=== PATIENT | male | born 1950 | race Caucasian/White ===

== ENCOUNTER → 2019-10-01 | Outpatient (CLI) | payer MEDICARE, SELFPAY ==
--- NOTE | 2019-10-01 14:09 | VDLE_ITS ---
Reason For Study: edema, pain RIGHT LEFT GSV is normal. GSV is normal. CFV is compressible, spontaneous, phasic, CFV is compressible, spontaneous, phasic, competent and demonstrates normal competent, and demonstrates normal augmentation. augmentation. FV is compressible, spontaneous, phasic, FV is compressible, spontaneous, phasic, competent and demonstrates normal competent and demonstrates normal augmentation. augmentation. POP V is compressible, spontaneous, phasic, POP V is compressible, spontaneous, phasic, competent and demonstrates normal competent and demonstrates normal augmentation. augmentation. T/P Trunk is compressible. T/P Trunk is compressible. PTV is compressible. PTV is compressible. RT PerV is compressible. LT PerV is compressible. Procedure Exam performed in department. The exam was diagnostic. A preliminary report was called and/or faxed to Milana DUTTON. Interpretation Summary Deep veins of the lower extremities are bilaterally patent and compressible segmentally. There is no evidence of deep vein thrombosis on either side. Valvular competence appears intact within the proximal deep venous systems bilaterally. The great saphenous veins appear bilaterally patent and compressible segmentally. Ordering Physician: Milana Cason Performed By: Elkin Mobley RVT
--- OUTSIDE RECORDS SUMMARY | 2020-02-07 11:55 | XMS RPT_ITS | CCD ---
:1950 External Reference #:[id number] Author Organization [facility] Care Team Providers Name Role Phone Brandy Fernández Primary Care Provider Medications Medication Name Sig Date Prescriber Location Fluocinonide fluocinonide (LIDEX) 12-31-2017 - Messi Fernández [facility] 0.05 % cream Apply 1 01-12-2020 ([id number]) application to affected area once daily as needed (hand eczema). 0 01/12/2020 Active Comment: Apply 1 application to affec parag area once daily as needed (hand eczema). Apply 1 application to affec parag area once daily. hydrOXYzine hydrOXYzine HCl (ATARAX) 08-31-2019 [facility] Provider [facility] 25 mg tablet TAKE 1 TABLET ( 10672) BY MOUTH EVERYDAY AT BEDTIME 0 08/31/2019 Active Comment: TAKE 1 TABLET BY MOUTH EVERY DAY AT BEDTIME Loratadine loratadine (CLARITIN) 10 mg tablet [facility] Pr ovider [facility] ([id number]) Take 10 mg by mouth twice daily. 0 Active Comment: Take 10 mg by mouth twice da catarino. Triamcinolone triamcinolone 06-30-2019 - [facility] Provider [facility] acetonide (KENALOG) 01-12-2020 Provider ([id number]) 0.1 % cream Apply 1 application to affected area twice daily. Use for 14 days, then stop for 7 days, then repeat as needed 0 06/30/2019 01/12/2020 Discontinued Comment: Apply 1 application to affec parag area twice daily. Use for 14 days, then stop for 7 days, then repeat as n eeded Problems Active Problems Category Problem Name Status Date Location Allergic reactions Chronic eczema Active [facility] ([id number]) Calculus of urinary tract Kidney stone Active [facility] (35220) Residual codes; Requires vaccination Active [facility] unclassified (07172) Unclassified Patient encounter status Active [facility] (97642) Past or Other Problems Category Problem Name Status Date Location Neoplasms of Myelodysplastic syndrome Completed 04-11-2012 - [facility] unspecified nature (clinical) (91942) or uncertain behavior Results Result Name Value Range Unit Interpretation Flag Date Location [facility] on 2020-01-26 [facility]) Normal 01-26-2020 [place] [facility] CLEMENCIA GARCIA ([id number]) 1950 M [facility] Time Provider Department ([id number]) 01/26/20 ELY ALFONSO During your visit today, we recorded the following informati on about you: Ely Alfonso MD 01/26/2020 3:42 PM Signed Please call patient for possible blood t ransfusion this week. Message left for patient to call back today. MD Pippa Cotter LPN, LPN 01/26/2020 4:07 PM Signed Pt. Scheduled for transfusio n 1 unit packed cells. Pt. And lab notified, orders faxed. Pt.instructed to leave his green band on. Pippa English LPN Allergies As of Date: 01/26/2020 (No Known Allergies) Date Reviewed: 01/12/2020 Reviewed by: Eugenia Browne LPN - Fully Assessed Reason for Visit: Results [95] Cmt: blood transfusion Prescriptions as of 01/26/2020 Sig: FLUOCINONIDE 0.05 % TOPICAL C* Apply 1 application to affect * HYDROXYZINE HCL 25 MG TABLET TAKE 1 TABLET BY MOUTH EVERYD* LORATADINE 10 MG TABLET Take 10 mg by mouth twice jo ann* Problem List As Of Date 01/26/2020 Noted Resolved BPH w/o urinary obs/LUTS [N40.0] 11/20/2005 01/11/2011 Urinary tract infection, site not specified [N3*11/20/2005 0 01/11/2011 Unspecified essential hypertension [I10] 11/20/2005 01/12/20 11 Borderline diabetes mellitus [R73.03] 01/19/2009 01/11/2011 Mixed hyperlipidemia [E78.2] 12/06/2009 01/11/2011 Macrocytic anemia [D53.9] 01/09/2012 04/11/2012 MDS (myelodysplastic syndrome), low grade [D46.*04/11/2012 Sideroblastic anemia, acquired [RCM7016] 04/11/2012 02/23/20 15 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] 03/25/2013 Special screening for malignant neoplasms, colo*10/07/2014 0 10/07/2014 Kidney stones [N20.0] Encounter Status:Closed by PIPPA ENGLISH on 01/26/20 cbc and differential on 2020-01-26 Abs Baso 0.05 <0.11 k/uL Normal 01-26-2020 [facility] ([id number]) Abs Piatt 0.37 <0.87 k/uL Normal 01-26-2020 [facility] (65696) Abs Neut 3.30 1.45-7.50 k/uL Normal 01-26-2020 [facility] (32856) Absolute nRBC 0.03 <0.01 k/uL High 01-26-2020 [facility] (83161) Basophils/100 WBC 1.1 % Normal 01-26[facility]2020 [facility] (Bld[facility] [place] ([id number]) DTYPE Auto Diff Normal 01-26-2020 [facility] ([id number]) Eosinophils (Bld) 0.17 <0.46 k/uL Normal 01-26-2020 C [facility] [#/Vol] [place] ([id number]) Eosinophils/100 WBC 3.6 % Normal 01-26-2020 [facility] (Bld) [place] ([id number]) Erythrocyte 18.2 11.5-15.0 % High 01-26-2020 [facility] distribution width C [facility] ([id number]) (RBC) [Ratio] Hematocrit (Bld) 20.3 39.0-51.0 % Low [facility] ([id number]) Hemoglobin (Bld) 6.7 13.0-17.0 g/dL Low 01-26-2020 [facility] [Mass/Vol] [place] ([id number]) Lymphocytes (Bld) 0.82 1.00-4.00 k/uL Low 01-26-2020 C [facility] [#/Vol] [place] ([id number]) Lymphocytes/100 WBC 17.3 % Normal 01-26-2020 [facility] (Bld) [place] ([id number]) MCH (RBC) [Entitic 38.7 26.0-34.0 pG High 01-26-2020 [facility] mass] [place] ([id number]) MCHC (RBC) 33.0 30.5-36.0 g/dL Normal 01-26-2020 [facility] [Mass/Vol] [place] ([id number]) MCV (RBC) [Entitic 117.3 80.0-100.0 fL High 01-26-2020 [facility] vol] [place] ([id number]) Monocytes/100 WBC 7.8 % Normal 01-26-2020 C [facility] (Bld) [place] ([id number]) Neutrophils/100 WBC 70.2 % Normal 01-26-2020 [facility] (Bld) [place] ([id number]) NRBCs 0.6 0 /100 WBC High 01-26-2020 [facility] (63481) Platelet mean volume 11.3 9.0-12.[address] [facility] (d) [Entitic vol] [place] ([id number]) Platelets (Bld) 357 150-400 k/uL Normal 01-26-2020 [facility] [#/Vol] [place] (69359) RBC (Bld) [#/Vol] 1.73 4.20-6.00 m/uL Low 01-26-2020 C [facility] (32387) WBC (Bld) [#/Vol] 4.73 3.70-11.00 k/uL Normal 01-26-2020 [facility] ([id number]) progress on 2019-12 PROGRESS HNO ID: [id number] Normal 01-12-2020 [facility] Author: Messi Fernández [place] ([id number]) Service: ? Author Type: Physician Type: Progress Notes Filed: 02/05/2020 12:02 AM Note Text: Medicare Yearly Visit Medical B eligibilty date 08/20/2017 Date of last exam 01/07/2019 PAST MEDICAL HISTORY Diagnosis Date - Kidney stones - MDS (myelodysplastic syndrome), low grade (HCC) Previously seeing Dr. Alfonso - Sideroblastic anemia (HCC) PAST SURGICAL HISTORY Procedure Laterality Date - APPENDECTOMY - COLONOSCOP W/ OR W/O BRSH SPEC 10/07/14 Colonoscopy - VASECTOMY Patient has no known allergies. Medications reviewed: Yes FAMILY HISTORY Problem Relation Age of Onset - Cancer Father melonma behind eye - Skin Cancer Father melanoma - Alzheimer's Disease Father - Diabetes Brother Type I - Stroke Paternal Grandfather 59 SOCIAL HISTORY: Social History Tobacco Use - Smoking status: Former Smoker Packs/day: 2.00 Years: 10.00 Pack years: 20.00 Types: Cigarettes Quit date: 11/17/1984 Years since quittin.1 - Smokeless tobacco: Never Used Substance Use Topics - Alcohol use: No - Drug use: No Clemencia works out regularly 7 times per week with walking. He w atches his diet for sodium, low fat and low cholesterol most of the lawson e. List of current specialists seen: Dr. Yasir Liu End of Live Planning discussed including patients advanced d irective wishes: Yes I am willing to follow Clemencia's advanced directives. PHQ-2 / Depression screen He in the past two weeks denies having felt down, depressed, hopeless or with little interest or pleasure in doing things. Functional Ability/Safety Screen 1. Was the patient's timed Up and Go test unsteady or longer than 30 seconds? No 2. Does the patient need help with the phone, transportation , shopping,preparing meals, housework, laundry, medications or managing money? No 3. Does your home have rugs in the hallway, lack of grab bar s in the bathroom, lack of handrails on the stairs or have poor light ing? No Hearing Evaluation: normal PHYSICAL EXAM BP 126/56 Pulse 84 Resp 12 Wt 81.6 kg (180 lb) BMI 2 3.96 kg/m? Alert and oriented X 3: YES Body mass index is 23.96 kg/m?. Visual acuity: OD: 20/50 OS: 20/ 70 OU: 20/40 See below ASSESSMENT/PLAN: 69 year old male The following prevention plan was discussed during the offic e visit and provided to the patient: - Glaucoma screening - Colorectal Cancer screening Colonoscopy--was postponed thi s year due to COVID-19 - US screening of Aorta for AAA--discussed Messi Fernández MD This note was created using KUBOOriter. Subjective Clemencia Garcia is a 69 year old male. HISTORY Clemencia Garcia is a 69 year old gentleman here for Medicare Wellness and yearly exam and follow up appointment. Eczema much improved Cool showers Gold reyes eczema relief cream has been doing well prevention . Cerave itch relief helps too for spot treatment. Hydroxyzine helped--trying without for now. PAST MEDICAL HISTORY Diagnosis Date - Kidney stones - MDS (myelodysplastic syndrome), low grade (HCC) Previously seeing Dr. Alfonso - Sideroblastic anemia (HCC) Current Outpatient Medications Medication Sig - hydrOXYzine HCl (ATARAX) 25 mg tablet TAKE 1 TABLET BY PRIYA TH EVERYDAY AT BEDTIME - loratadine (CLARITIN) 10 mg tablet Take 10 mg by mouth twi ce daily. - fluocinonide (LIDEX) 0.05 % cream Apply 1 application to a ffected area once daily as needed (hand eczema). No current facility-administered medications for this visit. ALLERGIES No Known Allergies FAMILY HISTORY Problem Relation Age of Onset - Cancer Father melonma behind eye - Skin Cancer Father melanoma - Alzheimer's Disease Father - Diabetes Brother Type I - Stroke Paternal Grandfather 59 Social History Tobacco Use - Smoking status: Former Smoker Packs/day: 2.00 Years: 10.00 Pack years: 20.00 Types: Cigarettes Quit date: 11/17/1984 Years since quittin.1 - Smokeless tobacco: Never Used Substance Use Topics - Alcohol use: No - Drug use: No Review of Systems Objective BP 126/56 Pulse 84 Resp 12 Wt 81.6 kg (180 lb) BMI 2 3.96 kg/m? Physical Exam Vitals signs reviewed. Constitutional: Appearance: Normal appearance. HENT: Head: Normocephalic. Right Ear: Tympanic membrane, ear canal and external ear nor mal. Left Ear: Tympanic membrane, ear canal and external ear norm al. Mouth/Throat: Mouth: Mucous membranes are moist. Pharynx: Oropharynx is clear. Eyes: Extraocular Movements: Extraocular movements intact. Conjunctiva/sclera: Conjunctivae normal. Neck: Musculoskeletal: Normal range of motion. Cardiovascular: Rate and Rhythm: Normal rate and regular rhythm. Pulses: Normal pulses. Heart sounds: Normal heart sounds. Pulmonary: Effort: Pulmonary effort is normal. Breath sounds: Normal breath sounds. Abdominal: General: Abdomen is flat. There is no distension. Palpations: Abdomen is soft. There is no mass. Skin: General: Skin is warm and dry. Neurological: General: No focal deficit present. Mental Status: He is alert and oriented to person, place, an d time. Psychiatric: Attention and Perception: Attention normal. Mood and Affect: Mood normal. Speech: Speech normal. Behavior: Behavior normal. Thought Content: Thought content normal. Cognition and Memory: Cognition normal. Judgment: Judgment normal. Component Latest Ref Rng AND Units 09/21/2019 09/29/2019 10/01/19 20 11/04/2019 12/22/2019 WBC 3.70 - 11.00 k/uL 4.72 4.38 4.32 4.78 RBC 4.20 - 6.00 m/uL 1.86 (L) 1.82 (L) 1.95 (L) 1.84 (L) Hemoglobin 13.0 - 17.0 g/dL 7.2 (L) 7.1 (L) 7.5 (L) 7.3 (L) Hematocrit 39.0 - 51.0 % 21.9 (L) 21.4 (L) 22.5 (L) 21.8 (L) MCV 80.0 - 100.0 fL 117.7 (H) 117.6 (H) 115.4 (H) 118.5 (H) MCH 26.0 - 34.0 pG 38.7 (H) 39.0 (H) 38.5 (H) 39.7 (H) MCHC 30.5 - 36.0 g/dL 32.9 33.2 33.3 33.5 RDW-CV 11.5 - 15.0 % 19.7 (H) 20.0 (H) 19.3 (H) 16.7 (H) Platelet Count 150 - 400 k/uL 428 (H) 368 395 345 MPV 9.0 - 12.7 fL 11.2 11.6 10.9 10.9 Neut% % 69.5 62.1 68.8 66.2 Abs Neut (ANC) 1.45 - 7.50 k/uL 3.26 2.72 2.95 3.16 Lymph% % 14.6 20.1 17.8 19.5 Abs Lymph 1.00 - 4.00 k/uL 0.69 (L) 0.88 (L) 0.77 (L) 0.93 ( L) Piatt% % 8.9 9.8 8.3 8.8 Abs Piatt <0.87 k/uL 0.42 0.43 0.36 0.42 Eosin% % 5.7 6.2 4.2 3.8 Abs Eosin <0.46 k/uL 0.27 0.27 0.18 0.18 Baso% % 1.3 1.8 0.9 1.7 Abs Baso <0.11 k/uL 0.06 0.08 0.04 0.08 Review (for CBC/CBCDIF) Done Nucleated Reds 0 /100 WBC 0.6 (H) 0.9 (H) 0.9 (H) 0.8 (H) Absolute nRBC <0.01 k/uL 0.03 (H) 0.04 (H) 0.04 (H) 0.04 (H) Diff Type Auto Diff Auto Diff Auto Diff Auto Diff Protein, Total 6.3 - 8.0 g/dL 6.5 6.6 6.5 Albumin 3.9 - 4.9 g/dL 4.4 4.4 4.4 Calcium 8.5 - 10.2 mg/dL 9.1 9.2 9.4 Bilirubin, Total 0.2 - 1.3 mg/dL 2.3 (H) 1.5 (H) 1.7 (H) Alkaline Phosphatase 38 - 113 U/L 66 67 66 AST 14 - 40 U/L 21 15 14 Glucose 74 - 99 mg/dL 110 (H) 126 (H) 131 (H) BUN 9 - 24 mg/dL 17 10 19 Creatinine 0.73 - 1.22 mg/dL 0.85 0.90 0.92 Sodium 136 - 144 mmol/L 137 141 138 Potassium 3.7 - 5.1 mmol/L 4.2 4.8 4.1 Chloride 97 - 105 mmol/L 104 105 103 CO2 22 - 30 mmol/L 24 26 27 Anion Gap 9 - 18 mmol/L 9 10 8 (L) ALT 10 - 54 U/L 15 15 11 eGFR- >60 >60 >60 eGFR-All Other Races . >60 >60 >60 ABO/RH(D) A POSITIVE Antibody Screen NEG Type+Scr Expiration 10/04/2019 Order Type Blood Bank Blood Bank Historical Ab Scr Status NEGATIVE Iron 41 - 186 ug/dL 179 TIBC 232 - 386 ug/dL 207 (L) Transferrin Saturation 15 - 57 % 86 (H) Retic % 0.4 - 2.0 % 2.4 (H) Abs Retic 0.0180 - 0.1000 M/uL 0.044 LD 135 - 225 U/L 168 Ferritin 30.3 - 565.7 ng/mL 833.0 (H) Computer Meteorologist Specimen #: [id number]* . . . Erythropoietin 2.6 - 18.5 mIU/mL 289.8 (H) Assessment and Plan Encounter Diagnosis ICD-10-CM 1. Medicare annual wellness visit, subsequent Z00.00 2. Need for vaccination Z23 ADMIN OF INFLUENZA VACCINE INFLUENZA SEASONAL QUADRIVALENT HIGH DOSE AGE 65+ Patient here for yearly exam and follow up. Above issues addressed with patient. Patient involved in [facility] decision making for management of medical issues. History and medications reviewed. Epic updated as needed Refills taken care of and meds adjusted as indicated after r cinthya history, exam and labs. Health Maintenance reviewed. Updated record and/or ordered t ests as recorded. Encouraged on efforts at healthy diet and regular exercise a nd adequate sleep. The majority of the visit was spent counseling and/or coordi nating care for the patient. Xiut-ao-bxwu time was at least 25 minutes. Messi Fernández MD cnov on 2020-01-12 CNOV Office Visit (INTMWS) Normal 01-12-20 [place] CLEMENCIA Green ([id number]) 1950 M [place] Date Time Provider Department ([id number]) 9/22/20 9:00 AM MESSI FERNÁNDEZ During your visit today, we recorded the following informati on about you: Pulse Respiration Blood pressure Weight 84/minute 12/minute 126/56 81.6 kg Eugenia Browne FABIOLA 01/12/2020 9:20 AM Signed VISUAL ACUITY: Today's exam: Vision Correction? No vision correction: RIGHT EYE: 20/50 LE FT EYE: 20/ 70 BOTH EYES: 20/40 Messi Fernández MD 02/05/2020 12:02 AM Signed Medicare Yearly Visit Medical B eligibilty date 08/20/2017 Date of last exam 01/07/2019 PAST MEDICAL HISTORY Diagnosis Date - Kidney stones - MDS (myelodysplastic syndrome), low grade (HCC) Previously seeing Dr. Alfonso - Sideroblastic anemia (HCC) PAST SURGICAL HISTORY Procedure Laterality Date - APPENDECTOMY - COLONOSCOP W/ OR W/O BRSH SPEC 10/07/14 Colonoscopy - VASECTOMY Patient has no known allergies. Medications reviewed: Yes FAMILY HISTORY Problem Relation Age of Onset - Cancer Father melonma behind eye - Skin Cancer Father melanoma - Alzheimer's Disease Father - Diabetes Brother Type I - Stroke Paternal Grandfather 59 SOCIAL HISTORY: Social History Tobacco Use - Smoking status: Former Smoker Packs/day: 2.00 Years: 10.00 Pack years: 20.00 Types: Cigarettes Quit date: 11/17/1984 Years since quittin.1 - Smokeless tobacco: Never Used Substance Use Topics - Alcohol use: No - Drug use: No Clemencia works out regularly 7 times per week with walking. He watches his diet for sodium, low fat and low cholesterol most of the time. List of current specialists seen: Dr. Yasir Liu End of Live Planning discuss ed including patients advanced directive wishes: Yes I am willing to follow Clemencia's advanced directives. PHQ-2 / Depression screen He in the past two weeks denies having felt down , depressed, hopeless or with little interest or pleasure in doing things. Functional Ability/Safety Screen 1. Was the patient's timed Up and Go test unstea dy or longer than 30 seconds? No 2. Does the patient need help with the phone, transportation , shopping,preparing meals, ho usework, laundry, medications or managing money? No 3. Does your home have rugs in the hallw ay, lack of grab bars in the bathroom, lack of handrails on the stairs or have poor lighting? No Hearing Evaluation: normal PHYSICAL EXAM BP 126/56 Pulse 84 Resp 12 Wt 81.6 kg (180 lb) BMI 2 3.96 kg/m? Alert and oriented X 3: YES Body mass index is 23.96 kg/m?. Visual acuity: OD: 20/50 OS: 20/ 70 OU: 20/40 See below ASSESSMENT/PLAN: 69 year old male The following prevention plan was discussed during the offic e visit and provided to the patient: - Glaucoma screening - Colorectal Cancer screening Colonoscopy--was postponed thi s year due to COVID-19 - US screening of Aorta for AAA--discussed Messi Fernández MD This note was created using KUBOOriter. Subjective Clemencia Garcia is a 69 year old male. HISTORY Clemencia Garcia is a 69 year old gentleman here for Medicare Wellness and yearly exam and follow up appointment. Eczema much improved Cool showers Gold reyes eczema relief cream has been doing well prevention . Cerave itch relief helps too for spot treatment. Hydroxyzine helped--trying without for now. PAST MEDICAL HISTORY Diagnosis Date - Kidney stones - MDS (myelodysplastic syndrome), low grade (HCC) Previously seeing Dr. Alfonso - Sideroblastic anemia (HCC) Current Outpatient Medications Medication Sig - hydrOXYzine HCl (ATARAX) 25 mg tablet TAKE 1 TABLET BY PRIYA TH EVERYDAY AT BEDTIME - loratadine (CLARITIN) 10 mg tablet Take 10 mg by mouth twi ce daily. - fluocinonide (LIDEX) 0.05 % cream Apply 1 appl ication to affected area once daily as needed (hand eczema). No current facility-administered medications for this visit. ALLERGIES No Known Allergies FAMILY HISTORY Problem Relation Age of Onset - Cancer Father melonma behind eye - Skin Cancer Father melanoma - Alzheimer's Disease Father - Diabetes Brother Type I - Stroke Paternal Grandfather 59 Social History Tobacco Use - Smoking status: Former Smoker Packs/day: 2.00 Years: 10.00 Pack years: 20.00 Types: Cigarettes Quit date: 11/17/1984 Years since quittin.1 - Smokeless tobacco: Never Used Substance Use Topics - Alcohol use: No - Drug use: No Review of Systems Objective BP 126/56 Pulse 84 Resp 12 Wt 81.6 kg (180 lb) BMI 2 3.96 kg/m? Physical Exam Vitals signs reviewed. Constitutional: Appearance: Normal appearance. HENT: Head: Normocephalic. Right Ear: Tympanic membrane, ear canal and external ear nor mal. Left Ear: Tympanic membrane, ear canal and external ear norm al. Mouth/Throat: Mouth: Mucous membranes are moist. Pharynx: Oropharynx is clear. Eyes: Extraocular Movements: Extraocular movements intact. Conjunctiva/sclera: Conjunctivae normal. Neck: Musculoskeletal: Normal range of motion. Cardiovascular: Rate and Rhythm: Normal rate and regular rhythm. Pulses: Normal pulses. Heart sounds: Normal heart sounds. Pulmonary: Effort: Pulmonary effort is normal. Breath sounds: Normal breath sounds. Abdominal: General: Abdomen is flat. There is no distension. Palpations: Abdomen is soft. There is no mass. Skin: General: Skin is warm and dry. Neurological: General: No focal deficit present. Mental Status: He is alert and oriented to person, place, an d time. Psychiatric: Attention and Perception: Attention normal. Mood and Affect: Mood normal. Speech: Speech normal. Behavior: Behavior normal. Thought Content: Thought content normal. Cognition and Memory: Cognition normal. Judgment: Judgment normal. Component Latest Ref Rng AND Units 09/21/2019 09/29/2019 10/01/2019 11/04/2019 12/22/2019 WBC 3.70 - 11.00 k/uL 4.72 4.38 4.32 4.78 RBC 4.20 - 6.00 m/uL 1.86 (L) 1.82 (L) 1.95 (L) 1.84 (L) Hemoglobin 13.0 - 17.0 g/dL 7.2 (L) 7.1 (L) 7.5 (L) 7.3 (L) Hematocrit 39.0 - 51.0 % 21.9 (L) 21.4 (L) 22.5 (L) 21.8 (L) MCV 80.0 - 100.0 fL 117.7 (H) 117.6 (H) 115.4 (H) 118.5 (H) MCH 26.0 - 34.0 pG 38.7 (H) 39.0 (H) 38.5 (H) 39.7 (H) MCHC 30.5 - 36.0 g/dL 32.9 33.2 33.3 33.5 RDW-CV 11.5 - 15.0 % 19.7 (H) 20.0 (H) 19.3 (H) 16.7 (H) Platelet Count 150 - 400 k/uL 428 (H) 368 395 345 MPV 9.0 - 12.7 fL 11.2 11.6 10.9 10.9 Neut% % 69.5 62.1 68.8 66.2 Abs Neut (ANC) 1.45 - 7.50 k/uL 3.26 2.72 2.95 3.16 Lymph% % 14.6 20.1 17.8 19.5 Abs Lymph 1.00 - 4.00 k/uL 0.69 (L) 0.88 (L) 0.77 (L) 0.93 ( L) Piatt% % 8.9 9.8 8.3 8.8 Abs Piatt <0.87 k/uL 0.42 0.43 0.36 0.42 Eosin% % 5.7 6.2 4.2 3.8 Abs Eosin <0.46 k/uL 0.27 0.27 0.18 0.18 Baso% % 1.3 1.8 0.9 1.7 Abs Baso <0.11 k/uL 0.06 0.08 0.04 0.08 Review (for CBC/CBCDIF) Done Nucleated Reds 0 /100 WBC 0.6 (H) 0.9 (H) 0.9 (H) 0.8 (H) Absolute nRBC <0.01 k/uL 0.03 (H) 0.04 (H) 0.04 (H) 0.04 (H) Diff Type Auto Diff Auto Diff Auto Diff Auto Diff Protein, Total 6.3 - 8.0 g/dL 6.5 6.6 6.5 Albumin 3.9 - 4.9 g/dL 4.4 4.4 4.4 Calcium 8.5 - 10.2 mg/dL 9.1 9.2 9.4 Bilirubin, Total 0.2 - 1.3 mg/dL 2.3 (H) 1.5 (H) 1.7 (H) Alkaline Phosphatase 38 - 113 U/L 66 67 66 AST 14 - 40 U/L 21 15 14 Glucose 74 - 99 mg/dL 110 (H) 126 (H) 131 (H) BUN 9 - 24 mg/dL 17 10 19 Creatinine 0.73 - 1.22 mg/dL 0.85 0.90 0.92 Sodium 136 - 144 mmol/L 137 141 138 Potassium 3.7 - 5.1 mmol/L 4.2 4.8 4.1 Chloride 97 - 105 mmol/L 104 105 103 CO2 22 - 30 mmol/L 24 26 27 Anion Gap 9 - 18 mmol/L 9 10 8 (L) ALT 10 - 54 U/L 15 15 11 eGFR- >60 >60 >60 eGFR-All Other Races . >60 >60 >60 ABO/RH(D) A POSITIVE Antibody Screen NEG Type+Scr Expiration 10/04/2019 Order Type Blood Bank Blood Bank Historical Ab Scr Status NEGATIVE Iron 41 - 186 ug/dL 179 TIBC 232 - 386 ug/dL 207 (L) Transferrin Saturation 15 - 57 % 86 (H) Retic % 0.4 - 2.0 % 2.4 (H) Abs Retic 0.0180 - 0.1000 M/uL 0.044 LD 135 - 225 U/L 168 Ferritin 30.3 - 565.7 ng/mL 833.0 (H) Computer Meteorologist Specimen #: [id number]* . . . Erythropoietin 2.6 - 18.5 mIU/mL 289.8 (H) Assessment and Plan Encounter Diagnosis ICD-10-CM 1. Medicare annual wellness visit, subsequent Z00.00 2. Need for vaccination Z23 ADMIN OF INFLUENZA VACCINE INFLUENZA SEASONAL QUADRIVALENT HIGH DOSE AGE 65+ Patient here for yearly exam and follow up. Above issues addressed with patient. Patient involved in shared decision making for management of medical issues. History and medications reviewed. Epic updated as needed Refills taken care of and meds adjusted as indicated a fter reviewed history, exam and labs. Health Maintenance reviewed. Updated record and/ or ordered tests as recorded. Encouraged on efforts at healthy diet an d regular exercise and adequate sleep. The majority of the visit wa s spent counseling and/or coordinating care for the patient. Klyq-eu-ykpq time was at least 25 minutes. Messi Fernández MD Referring Provider: MESIS FERNÁNDEZ [[id number]] Allergies As of Date: 01/12/2020 (No Known Allergies) Date Reviewed: 01/12/2020 Reviewed by: Eugenia Browne LPN - Fully Assessed Reason for Visit: Medicare Wellness Exam [4060] Primary Visit Diagnosis:Medicare annual wellness visit, hammer bsequent [Z00.00] Other Visit Diagnoses:Chronic eczema [L30.9] Need for vaccination [Z23] Order(s):ADMIN OF INFLUENZA VACCINE [[id number]] Order #: [id number]: 1 INFLUENZA SEASONAL QUADRIVALENT HIGH DOSE AGE 65+ [[id number]] Order #: [id number] fluocinonide (LIDEX) 0.05 % creamApply 1 application to affe cted area once daily as needed (hand eczema).Disp: Rfl: Prescriptions as of 01/12/2020 Sig: HYDROXYZINE HCL 25 MG TABLET TAKE 1 TABLET BY MOUTH EVERYD* LORATADINE 10 MG TABLET Take 10 mg by mouth twice jo ann* FLUOCINONIDE 0.05 % TOPICAL C* Apply 1 application to affect * Medication notes this encounter LORATADINE 10 MG TABLET >> Messi Fernández MD 01/12/2020 10:07 AM >> MESSI FERNÁNDEZ MD SatJan 12, 2020 10:07 AM Taking once daily now Problem List As Of Date 01/12/2020 Noted Resolved BPH w/o urinary obs/LUTS [N40.0] 11/20/2005 01/11/2011 Urinary tract infection, site not specified [N3*11/20/2005 0 01/11/2011 Unspecified essential hypertension [I10] 11/20/2005 01/12/20 11 Borderline diabetes mellitus [R73.03] 01/19/2009 01/11/2011 Mixed hyperlipidemia [E78.2] 12/06/2009 01/11/2011 Macrocytic anemia [D53.9] 01/09/2012 04/11/2012 MDS (myelodysplastic syndrome), low grade [D46.*04/11/2012 Sideroblastic anemia, acquired [[id number]] 04/11/2012 02/23/20 15 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 No vision correction: RIGHT EYE: 20/50 LE FT EYE: 20/ 70 BOTH EYES: 20/40 Prescriptions ordered this encounter Disp Refills Start End FLUOCINONIDE 0.05 % TOPICAL CREAM 01/12/2020 Class: Med Update Route: TOPICAL Sig: Apply 1 application to affected area once d aily as needed (hand eczema). Medications Discontinued During This Encounter Prescriptions - fluocinonide (LIDEX) 0.05 % cream (Discontinued) Apply 1 application to affected area once daily. - triamcinolone acetonide (KENALOG) 0.1 % cream (Discontinue d) Apply 1 application to affected area twice daily. Use for 14 days, then stop for 7 days, then repeat as needed Disposition: Return in about 1 year (around 01/11/2021) for Y early exam and follow up (40 min) Medicare Wellness. Follow-up and Disposition History Recorded Encounter Status:Closed by MESSI FERNÁNDEZ MD on 02/05/20 erasto on 2019-12-22 ERASTO Telephone (SHAYNA) Normal 12-22-2019 [place] [facility] CLEMENCIA GARCIA ([id number]) 1950 [facility] Date Time Provider Department ([id number]) 12/22/19 ELY ALFONSO During your visit today, we recorded the following informati on about you: Pippa English LPN, FABIOLA 12/22/2019 4:15 PM Signed Left message on identified voicemail received la b results, HGB 7.3. Wondering how pt. Is feeling, SOB,fatigue,ETC. Checking past correspondence , pt. Has been asymptomatic, no transfusions scheduled. Will await call back from pt., given private number to call. FABIOLA Stanton LPN 12/23/2019 11:16 AM Signed Patient returned call. States he has cande y slight fatigue but no other symptoms and does not want a transfusion. Abril Alfonso MD 12/29/2019 9:48 AM Signed Repeat CBC in 1 month. MD Renu Cotterandra Bowman 12/29/2019 11:15 AM Signed Left a voicemail stating to give our office a call back to schedule a lab appt. Pippa English LPN, LPN 12/29/2019 5:[address] Alfonso please sign order FABIOLA Stanton LPN, LPN 12/30/2019 12:24 PM Signed Left detailed message on identified voic email to get labs redrawn in 1 month , orders have been placed. If questions please contact the office. Pippa English LPN Allergies As of Date: 12/22/2019 (No Known Allergies) Date Reviewed: 10/01/2019 Reviewed by: Yosi (Fabiola) Sandra - Fully Assessed Reason for Visit: lab results [Other] Primary Visit Diagnosis:MDS (myelodysplastic syndrome), low grade (HCC) [D46.20] Order(s):CBC + DIFF [SQCBCDIF] Order #: [id number] FUTURE Prescriptions as of 12/22/2019 Sig: HYDROXYZINE HCL 25 MG TABLET TAKE 1 TABLET BY MOUTH EVERYD* LORATADINE 10 MG TABLET Take 10 mg by mouth twice jo ann* X TRIAMCINOLONE ACETONIDE 0.1 %* Apply [address]* X FLUOCINONIDE 0.05 % TOPICAL C* Apply [address]* Problem List As Of Date 12/22/2019 Noted Resolved BPH w/o urinary obs/LUTS [N40.0] 11/20/2005 01/11/2011 Urinary tract infection, site not specified [N3*11/20/2005 0 01/11/2011 Unspecified essential hypertension [I10] 11/20/2005 01/12/20 11 Borderline diabetes mellitus [R73.03] 01/19/2009 01/11/2011 Mixed hyperlipidemia [E78.2] 12/06/2009 01/11/2011 Macrocytic anemia [D53.9] 01/09/2012 04/11/2012 MDS (myelodysplastic syndrome), low grade [D46.*04/11/2012 Sideroblastic anemia, acquired [[id number]] 04/11/2012 02/23/20 15 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] 03/25/2013 Special screening for malignant neoplasms, colo*10/07/2014 0 10/07/2014 Kidney stones [N20.0] Encounter Status:Closed by PIPPA ENGLISH on 01/19/20 cbc and differential on 2019-12-22 Abs Baso 0.08 <0.11 k/uL Normal 12-22-2019 [facility] ([id number]) Abs Piatt 0.42 <0.87 k/uL Normal 12-22-2019 [facility] (76247) Abs Neut 3.16 1.45-7.50 k/uL Normal 12-22-2019 [facility] (27401) Absolute nRBC 0.04 <0.01 k/uL High 12-22-2019 [facility] (09595) Basophils/100 WBC 1.7 % Normal 12-22-2019 [facility] (Bld) [place] ([id number]) DTYPE Auto Diff Normal 12-22-2019 [facility] (56827) Eosinophils (Bld) 0.18 <0.46 k/uL Normal 12-22-2019 [facility] [#[facility]Vol[facility] [place] (67679) Eosinophils/100 WBC 3.8 % Normal 12-22-2019 [facility] (Bld) [place] (97403) Erythrocyte 16.7 11.5-15.0 % High 12-22-2019 [facility] distribution [facility] ([id number]) (RBC) [Ratio] Hematocrit (Bld) 21.8 39.0-51.0 % Low 12-22-2019 [facility] [Volume fraction] [facility] (71960) Hemoglobin (Bld) 7.3 13.0-17.0 g/dL Low 12-22-2019 [facility] [Mass/Vol] [place] (36554) Lymphocytes (Bld) 0.93 1.00-4.00 k/uL Low 12-22-2019 [facility] [#/Vol] [place] (88541) Lymphocytes/100 WBC 19.5 % Normal 12-22-2019 [facility] (Bld) [place] (33819) MCH (RBC) [Entitic 39.7 26.0-34.0 pG High 12-22-2019 [facility] mass] [place] (40287) MCHC (RBC) 33.5 30.5-36.0 g/dL Normal 12-22-2019 [facility] [Mass/Vol] [place] (41813) MCV (RBC) [Entitic 118.5 80.0-100.0 fL High 12-22-2019 [facility] vol] [place] (19117) Monocytes/100 WBC 8.8 % Normal 12-22-2019 [facility] (Bld) [place] (51220) Neutrophils/100 WBC 66.2 % Normal 12-22-2019 [facility] (Bld) [place] (51256) NRBCs 0.8 0 /100 WBC High 12-22-2019 [facility] (86391) Platelet mean volume 10.9 9.0-12.[address] [facility] (Bld) [Entitic vol] [place] (80447) Platelets (Bld) 345 150-400 k/uL Normal 12-22-2019 [facility] [#/Vol] [place] (27477) RBC (Bld) [#/Vol] 1.84 4.20-6.00 m/uL Low 12-22-2019 [facility] (88483) WBC (Bld) [#/Vol] 4.78 3.70-11.00 k/uL Normal 12-22-2019 [facility] (88253) cnpn on 2019-11-05 CNPN Telephone (SHAYNA) Normal 11-05-2019 [place] [facility] CLEMENCIA GARCIA ([id number]) 1950 M [place] Date Time Provider Department ([id number]) 11/05/19 ELY ALFONSO During your visit today, we recorded the following informati on about you: Ely Alfonso MD 11/05/2019 8:50 AM Signed Left message to call regarding his test results. Ely Alfonso MD Allergies As of Date: 11/05/2019 (No Known Allergies) Date Reviewed: 10/01/2019 Reviewed by: Yosi Flores - Fully Assessed Reason for Visit: Results [95] Cmt: Possible blood transfusion? Prescriptions as of 11/05/2019 Sig: HYDROXYZINE HCL 25 MG TABLET TAKE 1 TABLET BY MOUTH EVERYD* LORATADINE 10 MG TABLET Take 10 mg by mouth twice jo ann* TRIAMCINOLONE ACETONIDE 0.1 %* Apply 1 application to affect * FLUOCINONIDE 0.05 % TOPICAL C* Apply 1 application to affect * Problem List As Of Date 11/05/2019 Noted Resolved BPH w/o urinary obs/LUTS [N40.0] 11/20/2005 01/11/2011 Urinary tract infection, site not specified [N3*11/20/2005 0 01/11/2011 Unspecified essential hypertension [I10] 11/20/2005 01/12/20 11 Borderline diabetes mellitus [R73.03] 01/19/2009 01/11/2011 Mixed hyperlipidemia [E78.2] 12/06/2009 01/11/2011 Macrocytic anemia [D53.9] 01/09/2012 04/11/2012 MDS (myelodysplastic syndrome), low grade [D46.*04/11/2012 Sideroblastic anemia, acquired [[id number]] 04/11/2012 02/23/20 15 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Vol[facility]46[facility] AST [Catalytic 14 14-40 U/L Normal 11-04-2019 [facility] activity/Vol] [facility] (34141) Bilirubin [Mass/Vol] 1.7 0.2-1.3 mg/dL High 0 [facility] (48092) Calcium [Mass/Vol] 9.4 8.5-10.2 mg/dL Normal 11-04-2019 [facility] (61011) Chloride [Moles/Vol] 103 97-105 mmol/L Normal 0 [facility] (20514) CO2 [Moles/Vol] 27 22-30 mmol/L Normal 11-04-2019 [facility] (46256) Creatinine 0.92 0.73-1.22 mg/dL Normal 11-04-2019 [facility] [Mass/Vol] [place] (55348) eGFR- Amer. >60 Normal 11-04-2019 [facility] (77910) GFR/1.73 sq M >60 mL/min/{1.73_m Normal 11-04-2019 [facility] predicted among 2} [facility] (37588) non-blacks MDRD (S/P/Bld) [Vol rate/Area] Comment: Result Comment: eGFR (Estima parag GFR) Units of measure: mL/min/1.73 meters squared eGFR is derived from the ree xpressed MDRD Study equation using the following parameters: serum creatinine, age, gender and race. The creatinine assay has been calibrated to be traceable to IDMS. An eGFR <60 mL/min/1.73m2 fo r >3 months is consistent with chronic kidney disease. Refer to KDOQI guidelines for clinical interpretation. In patients with unstable re nal function, e.g. those with acute kidney injury, the eGFR may not accurately reflect actual GFR. Glucose [Mass/Vol] 131 74-99 mg/dL High 11-04-2019 [facility] (08933) Comment: Result Comment: The [place] Diabetes Association (ADA) provides guidance for cutoff values for fasting glucose and random glucose. The ADA defines fasting as no caloric intake for at least 8 hours. Fas ting plasma glucose results between 100 to 125 mg/dL indicate increased risk for diabetes (prediabetes). Fasting plasma glucose resul ts greater than or equal to 126 mg/dL meet the criteria for diagnosis of diabetes. In the absence of unequivocal hyperglycemia, results should be confirmed by repeat testing. In a patient with classic s ymptoms of hyperglycemia or hyperglycemic crisis, random plasma glucose results greater than or equal to 200 mg/dL meet the criteria for diagnosis of diabetes. Reference: Standards of [facility] Care in Diabetes 2016, [place] Diabetes Association. Diabetes Care. 2016.39(Suppl 1). Potassium [Moles/Vol] 4.1 3.7-5.1 mmol/L Normal 11-04-19 [facility] (44533) Protein [Mass/Vol] 6.5 6.3-8.0 g/dL Normal 11-04-2019 [facility] (13258) Sodium [Moles/Vol] 138 136-144 mmol/L Normal 11-04-2019 [facility] (62777) Urea nitrogen [Mass/Vol] 19 9-24 mg/dL Normal 11-03 [facility] (36365) cbc and differential on 2019-11-04 Abs Baso 0.04 <0.11 k/uL Normal 11-04-2019 [facility] (02826) Abs Piatt 0.36 <0.87 k/uL Normal 11-04-2019 [facility] (44987) Abs Neut 2.95 1.45-7.50 k/uL Normal 11-04-2019 [facility] (26514) Absolute nRBC 0.04 <0.01 k/uL High 11-04-2019 [facility] (11564) Basophils/100 WBC 0.9 % Normal 11-04-2019 [facility] (d) [place] (42043) DTYPE Auto Diff Normal 11-04-2019 [facility] (62081) Eosinophils (d) 0.18 <0.46 k/uL Normal 11-04-2019 [facility] [#/Vol] [place] (01922) Eosinophils/100 WBC 4.2 % Normal 11-04-2019 [facility] (d) [place] (74332) Erythrocyte 19.3 11.5-15.0 % High 11-04-2019 [facility] distribution width [facility] (79338) (RBC) [Ratio] Hematocrit (Bld) 22.5 39.0-51.0 % Low 11-04-2019 [facility] [Volume fraction] [facility] (79019) Hemoglobin (Bld) 7.5 13.0-17.0 g/dL Low 11-04-2019 [facility] [Mass/Vol] [place] (67505) Lymphocytes (Bld) 0.77 1.00-4.00 k/uL Low 11-04-2019 [facility] [#/Vol] [place] (99273) Lymphocytes/100 WBC 17.8 % Normal 11-04-2019 [facility] (Bld) [place] (33409) MCH (RBC) [Entitic 38.5 26.0-34.0 pG High 11-04-2019 [facility] mass] [place] (06592) MCHC (RBC) 33.3 30.5-36.0 g/dL Normal 11-04-2019 [facility] [Mass/Vol] [place] (66257) MCV (RBC) [Entitic 115.4 80.0-100.0 fL High 11-04-2019 [facility] vol] [place] (86298) Monocytes/100 WBC 8.3 % Normal 11-04-2019 [facility] (d) [place] (41762) Neutrophils/100 WBC 68.8 % Normal 11-04-2019 [facility] (Bld) [place] (08169) NRBCs 0.9 0 /100 WBC High 11-04-2019 [facility] (37392) Platelet mean volume 10.9 9.0-12.[address] [facility] ([facility]) [Entitic vol] [place] (80494) Platelets (Bld) 395 150-400 k/uL Normal 11-04-2019 [facility] [#/Vol] [place] (46827) RBC (Bld) [#/Vol] 1.95 4.20-6.00 m/uL Low 11-04-2019 [facility] (11133) WBC (Bld) [#/Vol] 4.32 3.70-11.00 k/uL Normal 11-04-2019 [facility] (94211) type and screen on 2019-10-01 ABO/RH(D) A POSITIVE Normal 10-01-2019 [facility] (09452) Comment: Performed By: #### TSCR #### [facility] [address] [place], [place] [phone]- [phone] progress on 2019-09 PROGRESS HNO ID: [id number] Normal 10-01-2019 [facility] Author: Filomena Rios (Rn) XIMENA Hernandez [place] (03190) Service: ? Author Type: Registered Nurse Type: Progress Notes Filed: 10/01/2019 10:10 AM Note Text: Informed Consent Presentation IRB# [id number] / IRB [id number] Title: A Study to Evaluate Imete lstat ([id number]) in Transfusion-Dependent Subjects with IPSS Low or Intermediate-1 Risk Myelodysplastic Syndrome (MDS) that is Relapsed/Refractory to Erythropoiesis-Stimulating Agent (BRET ) Treatment Consent expiration date 03/26/2020 Spoke with patient at the request of Dr. Ramirez. Treatment pl an, including all testing, potential risks/benefits, side effects and ash gement, treatment alternatives, and follow-up explained. Roles of e clinical trial personnel to be involved and the financial responsibil ities regarding procedures and medications were discussed. Discuss ed the importance of effective contraception during and following c ompletion of active therapy for 3 month(s). Initial questions were answer ed and a copy of the informed consent was given to patient with the instru ctions to read it and call with any additional questions. Contact informati on for the research nurse was given to the patient. The patient verbali zed appropriate understanding of all the aforementioned informat ion presented. Time of Presentation:929 Filomena Hernandez RN PROGRESS HNO ID: [id number] Normal 10-01-2019 [facility] Author: Alesia Ramirez MD [place] ([id number]) Service: ? Author Type: Physician Type: Progress Notes Filed: 10/01/2019 9:49 AM Note Text: [facility] Department of Hematology and Medical Oncology Leukemia Program New Patient Consultation PATIENT NAME: Clemencia Garcia REFERRING PHYSICIAN: self referral DATE OF SERVICE: 10/01/2019 REASON FOR EVALUATION: I am seeing Clemencia for a second opinion regarding his lower risk MDS HISTORY OF PRESENT ILLNESS: 69 year old male without significant PMH who was diagnosed w ith MDS, lower risk, RARS in 2011. He was initially followed by observation . Recently he was started on Aranecp 200 mcg every 14 days that was stoppe d last year due to No response. He had a repeated bone marrow biopsy on 09/28 (final report is back yet) but per Dr. Alfonso note, no progression in blasts. He came here for a second opinion regarding his MDS and xuan tment options. Overall doing ok but he feels tired more than usual. REVIEW OF THE SYSTEM: General: No fatigue. No fevers/chills. No night sweats. No nausea/vomiting. No change in appetite, stable weight. No bruising/bleeding. HEENT: No headache/lightheaded/dizziness. No visual changes. No hearing changes. No sore throat or dysphagia. No neck pain/stiffness . No lumps/masses. Cardiac: No chest pain. No SOB/KAN. No orthopnea/PND/edema. Pulmonary: No cough/sputum/hemoptysis. GI: No abdominal pain. No diarrhea/constipation. No melena/h ematochezia. : No dysuria/hematuria/nocturia. Muscular skeletal: No joint pain/swelling. No myalgias. No b one pain. Neurological: No headache. No seizure. No syncope. No focal motor or sensory complaints. A full 14 system ROS was reviewed and deemed noncontributory unless otherwise stated in the history section above. PAST MEDICAL HISTORY Diagnosis Date - Kidney stones - MDS (myelodysplastic syndrome), low grade (HCC) Previously seeing Dr. Alfonso - Sideroblastic anemia (HCC) PAST SURGICAL HISTORY Procedure Laterality Date - APPENDECTOMY - COLONOSCOP W/ OR W/O [email or web address] SPEC 10/07/14 Colonoscopy - VASECTOMY FAMILY HISTORY: Family History Problem Relation Age of Onset - Cancer Father melonma behind eye - Skin Cancer Father melanoma - Alzheimer's Disease Father - Diabetes Brother Type I - Stroke Paternal Grandfather 59 No family history of leukemia or hematologic malignancies. SOCIAL HISTORY: He is for 49 years, live with his , He used to smoke 1PPD for 5 years in his 30s however he quit smoking in mid 1970s. He drink one to two alcoholic drinks PHYSICAL EXAM: Vitals: There were no vitals taken for this visit. General: NAD, AOx3, mood and affect appropriate HEENT: Sclera anicteric, conjunctiva non-injected. Mucosa pi nk and moist. No erythema/exudate or lesions in oropharynx. No temporal wa sting. Lymph: No palpable cervical, supra/ infra clavicular, or axi llary LAD. Cardio: RRR, normal S1S2, no murmurs, rubs, or gallops. Pulmonary: clear to ascultation bilaterally, no wheezing, ra les, or rhonchi. Abdomen: Soft, non tender/non distended, normal bowel sounds , no hepatosplenomegaly. Extremities: No edema, cyanosis, or clubbing. Skin: No rash, No petechia or purpura. Neurological: No gross focal neuro deficit. Performance status: ECO DATA: LABORATORY DATA: Reviewed in [facility]. ASSESSMENT AND PLAN: 1. Oncology: - 69 year old with history of lower risk MDS, RARS, SF3B1 mu tation per outside record. Patient stopped BRET about a year ago because it dose not wor k. I recommend to repeat a bone marrow biopsy to evaluate his disease. I al so recommend blood transfusions given his current hb. Discussed treatment options that include Luspatercept (recetnly approved for RARS, SF3B1 muta tion), azacitidine/decitabine, ATG-CSA, lenalidomide, supportive ca re or clinical trial. Discussed at length all these options, response rates , and expected side effects. He also met with our research nurse to talk ab out a clinical trial. He will evaluate his options and get back to us with questions. In the interm, he will receive blood transfusion with Dr. Yasir ram. 2. Hematology: - Anemia, Hb is 71.1, he will receive blood transfusions loc ally. 3. Eczema - stable, he will continue to follow up with his dermatologi st. Alesia Ramirez MD Associate Staff [facility] epo on 2019-10-01 EPO 289.8 2.6-18.5 mIU/mL High 10-01-2019 [facility] (38114) Comment: Result Comment: Test analyze d by the Kaleigh DxI method. Performed By: #### EPO ####[place] [address], [place] [phone]- [phone] comp metabolic panel on 2019-10-01 Albumin [Mass/Vol] 4.4 3.9-4.9 g/dL Normal 10-01-2019 [facility] (14657) Comment: Performed By: #### ASHELY C MP ####[place] [address], [place] [phone] ALP [Catalytic activity/Vol] 67 38-113 U/L Normal 0 10-01-2019 [facility] (96876) Comment: Performed By: #### ASHELY C MP ####[address], [place] [phone]- [phone] ALT [Catalytic activity/Vol] 15 10-54 U/L Normal 0 10-01-2019 [facility] (69713) Comment: Performed By: #### ASHELY C MP ####[place] [address] [address], [place] [phone] Anion gap [Moles/Vol] 10 9-18 mmol/L Normal 10-01-19 [facility] (91927) Comment: Performed By: #### ASHELY C MP ####[place] [address] [address], [place] [phone]- [phone] AST [Catalytic activity/Vol] 15 14-40 U/L Normal 0 10-01-2019 [facility] (58719) Comment: Performed By: #### ASHELY C MP ####[place] [address], [place] [phone]- [phone] Bilirubin [Mass/Vol] 1.5 0.2-1.3 mg/dL High 0 [facility] (87141) Comment: Performed By: #### ASHELY C MP ####[place] [address] [address], [place] [phone]- [phone] Calcium [Mass/Vol] 9.2 8.5-10.2 mg/dL Normal 10-01-2019 [facility] (71430) Comment: Performed By: #### Gabriele LUND MP ####[place] [address] [address], [place] [phone] Chloride [Moles/Vol] 105 97-105 mmol/L Normal 0 [facility] (91556) Comment: Performed By: #### Gabriele LUND MP ####[place] [address] [address], [place] [phone]- [phone] CO2 [Moles/Vol] 26 22-30 mmol/L Normal 10-01-2019 [facility] (72046) Comment: Performed By: #### Gabriele LUND MP ####[place] [address] [address], [place] [phone]- [phone] Creatinine [Mass/Vol] 0.90 0.73-1.22 mg/dL Normal 10-01-19 20 [facility] (55576) Comment: Performed By: #### Gabriele LUND MP ####[place] [address] [address], [place] [phone] eGFR- Amer. >60 Normal 10-01-2019 [facility] (28562) Comment: Performed By: #### Gabriele LUND MP ####[place] [address] [address], [place] [phone]- [phone] GFR/1.73 sq M predicted >60 mL/min/{1.73_m2} Normal 10-01-2019 [facility] among non-blacks [facility] (06287) (S/P/Bld) [Vol rate/Area] Comment: Result Comment: eGFR (Estima parag GFR) Units of measure: mL/min/1.73 meters squared eGFR is derived from the ree xpressed MDRD Study equation using the following parameters: serum creatinine, age, gender and race. The creatinine assay has been calibrated to be traceable to IDMS. An eGFR <60 mL/min/1.73m2 fo r >3 months is consistent with chronic kidney disease. Refer to KDOQI guidelines for clinical interpretation. In patients with unstable re nal function, e.g. those with acute kidney injury, the eGFR may not accurately reflect actual GFR. Performed By: #### Gabriele LUND MP ####[facility], [place] [phone]- [phone] Glucose [Mass/Vol] 126 74-99 mg/dL High 10-01-2019 [facility] (97540) Comment: Result Comment: The [place] Diabetes Association (ADA) provides guidance for cutoff values for fasting glucose and random glucose. The ADA defines fasting as no caloric intake for at least 8 hours. Fas ting plasma glucose results between 100 to 125 mg/dL indicate increased risk for diabetes (prediabetes). Fasting plasma glucose resul ts greater than or equal to 126 mg/dL meet the criteria for diagnosis of diabetes. In the absence of unequivocal hyperglycemia, results should be confirmed by repeat testing. In a patient with classic s ymptoms of hyperglycemia or hyperglycemic crisis, random plasma glucose results greater than or equal to 200 mg/dL meet the criteria for diagnosis of diabetes. Reference: Standards of [facility] Care in Diabetes 2016, [place] Diabetes Association. Diabetes Care. 2016.39(Suppl 1). Performed By: #### Gabriele LUND MP ####[facility], [place] [phone]- [phone] Potassium [Moles/Vol] 4.8 3.7-5.1 mmol/L Normal 10-01-19 [facility] (85415) Comment: Performed By: #### Gabriele LUND MP ####[facility] [address], [place] [phone]- [phone] Protein [Mass/Vol] 6.6 6.3-8.0 g/dL Normal 10-01-2019 [facility] (94538) Comment: Performed By: #### Gabriele LUND MP ####[facility], [place] [phone]- [phone] Sodium [Moles/Vol] 141 136-144 mmol/L Normal 10-01-2019 [facility] (54369) Comment: Performed By: #### CBCDIGabriele Allen MP ####[facility] [address] [place], [place] [id number]- [phone] Urea nitrogen [Mass/Vol] 10 9-24 mg/dL Normal 09-30 [facility] ([id number]) Comment: Performed By: #### CBCCARINE C MP ####[facility] [address] [place], [place] [id number]- [phone] cnpn on 2019-10-01 CNPN Telephone (INTMWS) Normal 10-01-2019 [place] [facility] CLEMENCIA GARCIA ([id number]) 1950 [facility] Date Time Provider Department () 10/01/19 MILANA ALSTON (JOHNNA) INTMWS During your visit today, we recorded the following informati on about you: Milana Alston APRN.CNP 10/01/2019 3:06 PM Signed Please let the patient know his kidney and liver function we re normal. CBC showing blood counts are stable. Ultraso und was negative for blood clots. Keep legs elevated, avoid prolonged sitting or standi ng, stay hydrated, watch salt intake. Call office in 2 weeks if no improvement in swelling despite above measures or sooner if worsening JAMIL Trejo LPN 10/01/2019 3:16 PM Signed Left message to call office and speak to nurse. Rivka Kwan LPN 10/01/2019 4:41 PM Signed Pt notified of results and provider recommendations. Dorita Kwan LPN Allergies As of Date: 10/01/2019 (No Known Allergies) Date Reviewed: 10/01/2019 Reviewed by: Yosi Matta) Sandra - Fully Assessed Reason for Visit: Results [95] Prescriptions as of 10/01/2019 Sig: HYDROXYZINE HCL 25 MG TABLET TAKE 1 TABLET BY MOUTH EVERYD* LORATADINE 10 MG TABLET Take 10 mg by mouth twice jo ann* TRIAMCINOLONE ACETONIDE 0.1 %* Apply 1 application to affect * FLUOCINONIDE 0.05 % TOPICAL C* Apply 1 application to affect * Problem List As Of Date 10/01/2019 Noted Resolved BPH w/o urinary obs/LUTS [N40.0] 11/20/2005 01/11/2011 Urinary tract infection, site not specified [N3*11/20/2005 0 01/11/2011 Unspecified essential hypertension [I10] 11/20/2005 01/12/20 11 Borderline diabetes mellitus [R73.03] 01/19/2009 01/11/2011 Mixed hyperlipidemia [E78.2] 12/06/2009 01/11/2011 Macrocytic anemia [D53.9] 01/09/2012 04/11/2012 MDS (myelodysplastic syndrome), low grade [D46.*04/11/2012 Sideroblastic anemia, acquired [[id number]] 04/11/2012 02/23/20 15 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] 03/25/2013 Special screening for malignant neoplasms, colo*10/07/2014 0 10/07/2014 Kidney stones [N20.0] Encounter Status:Closed by DORITA KWAN LPN on 10/01/19 cnovsp on 2019-09-21 1 CNOVSP Visit (SP) Office (HEMAMN) Normal [place] CLEMENCIA Green ([id number]) 1950 [place] Date Time Provider Department ([id number]) 10/01/19 9:00 AM ALESIA RAMIREZ During your visit today, we recorded the following informati on about you: Temperature Pulse Respiration Blood pressure 98.2 degrees 83/minute 16/minute 142/72 Weight Height 81.1 kg 1.846 m Yosi Flores LPN 10/01/2019 8:49 AM Signed Additional intake questions: Has the patient had fever, nausea, vomiting, diarrhea, constipation, fatigue for > 1 week? No Does the patient have a decreased appetite? No Does patient want to see a Dog Sitter? No (yes to any of above refer patient to schedulers for dietitian appointment) ) Does patient have any new or increased n umbness or tingling of extremities? No Is patient interested in fertility information? NA Does patient need any prescription refills? No Does patient have an advance d directive in place? Yes, no copy found in Syntax[employer] pt will bring Electronically Signed By: FABIOLA Paul MD, 10/01/2019 9:49 AM Signed [facility] Department of Hematology and Medical Oncology Leukemia Program New Patient Consultation PATIENT NAME: Clemencia Garcia REFERRING PHYSICIAN: self referral DATE OF SERVICE: 10/01/2019 REASON FOR EVALUATION: I am seeing Clemencia for a second opinion regarding his lower risk MDS HISTORY OF PRESENT ILLNESS: 69 year old male without significant PMH who was diagnosed w ith MDS, lower risk, RARS in 2011. He was initially followed by observation. Recently he was started on Aranecp 200 mcg every 14 days that wa s stopped last year due to No response. He had a repeated bone marrow biopsy on 09/28 (fin al report is back yet) but per Dr. Alfonso note, no progression in blasts. He came here for a second opinion regarding his MDS and xuan tment options. Overall doing ok but he feels tired more than usual. REVIEW OF THE SYSTEM: General: No fatigue. No fevers/chills. N o night sweats. No nausea/vomiting. No change in appetite, stable weight. No bruising/bleeding. HEENT: No headache/lightheaded/dizziness. No visual changes. No hearing changes. No sore throat or dysphagia. No neck pain/stiffness. No lumps/masses. Cardiac: No chest pain. No SOB/KAN. No orthopnea/PND/edema. Pulmonary: No cough/sputum/hemoptysis. GI: No abdominal pain. No diarrhea/constipation. No melena/h ematochezia. : No dysuria/hematuria/nocturia. Muscular skeletal: No joint pain/swelling. No myalgias. No b one pain. Neurological: No headache. No seizure. No syncope. No focal motor or sensory complaints. A full 14 system ROS was reviewed and deemed non contributory unless otherwise stated in the history section above. PAST MEDICAL HISTORY Diagnosis Date - Kidney stones - MDS (myelodysplastic syndrome), low grade (HCC) Previously seeing Dr. Alfonso - Sideroblastic anemia (HCC) PAST SURGICAL HISTORY Procedure Laterality Date - APPENDECTOMY - COLONOSCOP W/ OR W/O [facility] [[email or web address]] SPEC 10/07/14 Colonoscopy - VASECTOMY FAMILY HISTORY: Family History Problem Relation Age of Onset - Cancer Father melonma behind eye - Skin Cancer Father melanoma - Alzheimer's Disease Father - Diabetes Brother Type I - Stroke Paternal Grandfather 59 No family history of leukemia or hematologic malignancies. SOCIAL HISTORY: He is for 49 years, live with his , He used to smoke 1PPD for 5 years in his 30s however he qu it smoking in mid 1970s. He drink one to two alcoholic drinks PHYSICAL EXAM: Vitals: There were no vitals taken for this visit. General: NAD, AOx3, mood and affect appropriate HEENT: Sclera anicteric, conjunctiva non-injected. Muc samantha pink and moist. No erythema/exudate or lesions in oropharynx. No temporal wasti ng. Lymph: No palpable cervical, supra/ infra clavicular, or axi llary LAD. Cardio: RRR, normal S1S2, no murmurs, rubs, or gallops. Pulmonary: clear to ascultation bilaterally, no wheezi ng, rales, or rhonchi. Abdomen: Soft, non tender/non distended, normal bowel sounds , no hepatosplenomegaly. Extremities: No edema, cyanosis, or clubbing. Skin: No rash, No petechia or purpura. Neurological: No gross focal neuro deficit. Performance status: ECO DATA: LABORATORY DATA: Reviewed in [facility]. ASSESSMENT AND PLAN: 1. 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 Patient stopped BRET about a year ago because it dose not work. I recommend to repeat a bone marrow biopsy to evaluate his disease. I als o recommend blood transfusions given his current hb. Discussed treatment opt ions that include Luspatercept (recetnly approved for RARS, SF3B1 mutation), azacitidine/decitabine, ATG-CSA, lenalidomide, supportive ca re or clinical trial. Discussed at length a ll these options, response rates, and expected side effects. He also met with karri r research nurse to talk about a clinical trial. He will evaluate his options and get back t o us with questions. In the interm, he will receive blood transfusion with Dr. Yasir hammer. 2. Hematology: - Anemia, Hb is 71.1, he will receive blood transfusions loc ally. 3. Eczema - stable, he will continue to follow up with his dermatologi st. Alesia Ramirez MD Associate Staff [facility] Referring Provider: SELF [200] Allergies As of Date: 10/01/2019 (No Known Allergies) Date Reviewed: 10/01/2019 Reviewed by: Yosi (Medical Customer Service Representative) Sandra - Fully Assessed Reason for Visit: Consult [173] Visit Diagnosis:MDS (myelodysplastic syndrome) ([facility]) [D46.9] Prescriptions as of 10/01/2019 Sig: HYDROXYZINE HCL 25 MG TABLET TAKE 1 TABLET BY MOUTH EVERYD* LORATADINE 10 MG TABLET Take 10 mg by mouth twice jo ann* TRIAMCINOLONE ACETONIDE 0.1 %* Apply 1 application to affect * FLUOCINONIDE 0.05 % TOPICAL C* Apply 1 application to affect * Problem List As Of Date 10/01/2019 Noted Resolved BPH w/o urinary obs/LUTS [N40.0] 11/20/2005 01/11/2011 Urinary tract infection, site not specified [N3*11/20/2005 0 01/11/2011 Unspecified essential hypertension [I10] 11/20/2005 01/12/20 11 Borderline diabetes mellitus [R73.03] 01/19/2009 01/11/2011 Mixed hyperlipidemia [E78.2] 12/06/2009 01/11/2011 Macrocytic anemia [D53.9] 01/09/2012 04/11/2012 MDS (myelodysplastic syndrome), low grade [D46.*04/11/2012 Sideroblastic anemia, acquired [QYL3821] 04/11/2012 02/23/20 15 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 No Does the patient have a decreased appetite? No Does patient want to see a Dog Sitter? No (yes to any of above refer patient to schedulers for dietiti an appointment) ) Does patient have any new or increased numbness or tingling of extremities? No Is patient interested in fertility information? NA Does patient need any prescription refills? No Does patient have an advanced directive in place? Yes, no co py found in Epic pt will bring cbc and differential on 2019-10-01 Abs Baso 0.08 <0.11 k/uL Normal 10-01-2019 [facility] ([id number]) Comment: Performed By: #### Gabriele LUND MP ####[facility] [place] [address] [phone] Abs Piatt 0.43 <0.87 k/uL Normal 10-01-2019 [facility] ([id number]) Comment: Performed By: #### Gabriele LUND MP ####[facility] [place], [place] [phone] Abs Neut 2.72 1.45-7.50 k/uL Normal 10-01-2019 [facility] ([id number]) Comment: Performed By: #### Gabriele LUND MP ####[facility] [place], [place] [phone] Absolute nRBC 0.04 <0.01 k/uL High 10-01-2019 [facility] ([id number]) Comment: Performed By: #### Gabriele LUND MP ####[place] [address] [address] [place], [place] [phone]- [phone] Basophils/100 WBC (Bld) 1.8 % Normal 2019 [facility] ([id number]) Comment: Performed By: #### ASHELY C MP ####[place] [address] [address] [facility] [place], [place] [phone]- [phone] DTYPE Auto Diff Normal 10-01-2019 [facility] ([id number]) Comment: Performed By: #### ASHELY C MP ####[place] [address] [place], [place] [phone]- [phone] Eosinophils (Bld) [#/Vol] 0.27 <0.46 k/uL Normal 09-20 [facility] ([id number]) Comment: Performed By: #### ASHELY C MP ####[place] [address] [place], [place] [phone]- [phone] Eosinophils/100 WBC (Bld) 6.2 % Normal 09-20 [facility] (02570) Comment: Performed By: #### ASHELY C MP ####[place] [address], [place] [phone]- [phone] Erythrocyte distribution 20.0 11.5-15.0 % High 09-30 [facility] width (RBC) [Ratio] [place] ([id number]) Comment: Performed By: #### ASHELY C MP ####[place] [address] [place], [place] [phone]- [phone] Hematocrit (Bld) [Volume 21.4 39.0-51.0 % Low 09-30 [facility] fraction] ([id number]) Comment: Performed By: #### CBCCARINE C MP ####[place] [address] [address] [place], [place] [phone]- [phone] Hemoglobin (Bld) 7.1 13.0-17.0 g/dL Low 10-01-2019 [facility] [Mass/Vol] [place] ([id number]) Comment: Performed By: #### ASHELY C MP ####[place] [address] [address], [place] [phone]- [phone] Lymphocytes (Bld) [#/Vol] 0.88 1.00-4.00 k/uL Low 09-20 [facility] ([id number]) Comment: Performed By: #### ASHELY C MP ####[place] [address] [address], [place] [phone]- [phone] Lymphocytes/100 WBC (Bld) 20.1 % Normal 09-20 [facility] (04356) Comment: Performed By: #### ASHELY C MP ####[place] [address], [place] [phone]- [phone] MCH (RBC) [Entitic mass] 39.0 26.0-34.0 pG High 09-30 [facility] (26621) Comment: Performed By: #### ASHELY C MP ####[place] [address] [address], [place] [phone]- [phone] MCHC (RBC) [Mass/Vol] 33.2 30.5-36.0 g/dL Normal 10-01-19 [facility] (13390) Comment: Performed By: #### ASHELY C MP ####[place] [address], [place] [phone]- [phone] MCV (RBC) [Entitic vol] 117.6 80.0-100.0 fL High 09-30 [facility] (59357) Comment: Performed By: #### CBCCARINE C MP ####[place] [address], [place] [phone] Monocytes/100 WBC (Bld) 9.8 % Normal 2019 [facility] (60211) Comment: Performed By: #### CBCCARINE C MP ####[place] [address] [address], [place] [phone]- [phone] Neutrophils/100 WBC (Bld) 62.1 % Normal 09-20 [facility] (82298) Comment: Performed By: #### ASHELY C MP ####[facility] [place], [place] [phone]- [phone] NRBCs 0.9 0 /100 WBC High 10-01-2019 [facility] (75973) Comment: Performed By: #### CBCCARINE C MP ####[place] [address] [place], [place] [phone]- [phone] Platelet mean volume 11.6 9.0-12.[address] [facility] (Bld) [Entitic vol] [place] (56020) Comment: Performed By: #### ASHELY C MP ####[place] [address] [place], [place] [phone] Platelets (Bld) [#/Vol] 368 150-400 k/uL Normal 2019 [facility] (55370) Comment: Performed By: #### ASHELY C MP ####[place] [address] [address], [place] [phone]- [phone] RBC (Bld) [#/Vol] 1.82 4.20-6.00 m/uL Low 10-01-2019 [facility] ([id number]) Comment: Performed By: #### CBCCARINE C MP ####[place] [address] [place], [place] [phone]- [phone] WBC (Bld) [#/Vol] 4.38 3.70-11.00 k/uL Normal 10-01-2019 [facility] (66510) Comment: Performed By: #### ASHELY C MP ####[facility] [place], [place] [phone]- [phone] progress on 2019-09 PROGRESS HNO ID: [id number] Normal 09-30-2019 [facility] Author: Milana (Johnna) Older [place] ([id number]) Service: ? Author Type: Nurse Practitioner Type: Progress Notes Filed: 09/30/2019 4:10 PM Note Text: This Team Access Model visit is a virtual encounter. It requ ired patient-provider interaction for the medical decision making as documented below. Patient agrees to the visit: Yes Patient Location: [place] CC: Patient presents with: Swelling HPI Clemencia Garcia is a 69 year old male who is contacted today for a virtual visit. This is an established patient of Dr. Messi Fernández MD. Patient reports swelling BLE, left leg is worse. Started abo ut 8 to 9 days ago. Improves with walking. Sitting makes it worse. He does not elevate his legs. Positive for pain BLE. Denies redness, increased w armth, red streaking, fever, chills, SOB, chest pain, palpitations, PND , orthopnea, weight gain. Has never had swelling like this before. No his tory of CHF or blood clots. Drinks plenty of fluids. Has not been sitting m ore than usual. No new medications. Denies frequent use of NSAID's. N o change in diet or increase in salt intake. REVIEW OF SYSTEMS See HPI PAST MEDICAL HISTORY Diagnosis Date - Kidney stones - MDS (myelodysplastic syndrome), low grade (HCC) Previously seeing Dr. Alfonso - Sideroblastic anemia (HCC) PAST SURGICAL HISTORY Procedure Laterality Date - APPENDECTOMY - COLONOSCOP W/ OR W/O [facility] [[email or web address] SPEC 10/07/14 Colonoscopy - VASECTOMY ALLERGIES Patient has no known allergies. MEDICATIONS hydrOXYzine HCl (ATARAX) 25 mg tablet TAKE 1 TABLET BY MOUTH EVERYDAY AT BEDTIME loratadine (CLARITIN) 10 mg tablet Take 10 mg by mouth twice daily. triamcinolone acetonide (KENALOG) 0.1 % cream Apply 1 applic ation to affected area twice daily. Use for 14 days, then stop for 7 days, then repeat as needed fluocinonide (LIDEX) 0.05 % cream Apply 1 application to aff ected area once daily. FAMILY HISTORY Problem Relation Age of Onset - Cancer Father melonma behind eye - Skin Cancer Father melanoma - Alzheimer's Disease Father - Diabetes Brother Type I - Stroke Paternal Grandfather 59 Social History Tobacco Use - Smoking status: Former Smoker Packs/day: 2.00 Years: 10.00 Pack years: 20.00 Types: Cigarettes Last attempt to quit: 11/17/1984 Years since quittin.8 - Smokeless tobacco: Never Used Substance Use Topics - Alcohol use: No - Drug use: No EXAM: Virtual visit completed using video, limited exam completed. GENERAL: alert and appropriate, in no distress, well-hydrate d, well nourished and happy, smiling, interactive RESPIRATORY: speaking in complete sentences without obvious respiratory distress or audible wheezing. CHEST: equal chest rise with normal respiratory effort EXTREMITIES: 1+ pitting edema, L > R. No obvious redness, di scoloration, red streaking DATA REVIEWED: Most recent labs Modified Wells Rule for DVT (1pt each) - active cancer (tx or palliation in last 6mo)= 0 - paralysis, paresis or recent leg casting= 0 - bedridden >3D/major surgery w/in 4 wks= 0 - localized tenderness along deep venous system= 1 - entire ext swollen= 0 - unilateral calf swelling >3cm below Tibial tuberosity= 0 - unilateral pitting edema= 0 - prominent non-varicose collateral superficial veins= 0 Score -2 if alt dx as likely as DVT= 0 Score Total: 1 Pretest probabilty: High >= 3, Intermediate 1-2, Low 0 ASSESSMENT/PLAN: 1. Bilateral lower extremity edema - ICD9: 782.3, ICD10: R60 .0 (primary diagnosis) Differential diagnoses includes anemia, venous insufficiency , DVT. No symptoms concerning for infection or HF. - Check CBC and CMP - Venous ultrasound to rule out DVT - Follow-up and further recommendations pending results of w ork-up 2. Bilateral lower extremity pain - ICD9: 729.5, ICD10: M79. 604, M79.605 As above Prescription instructions reviewed with patient as applicabl e. Potential red flag symptoms discussed with the patient. Reviewed appro priate action plan to take if red flag symptoms occur. Patient agreeable t o treatment plan. Milana Alston APRN.JOHNNA maurer on 2019-09-30 CNPN Telephone (INTWS) Normal 09-30-2019 [place] [facility] CLEMENCIA GARCIA ([id number]) 1950 [facility] Date Time Provider Department ([id number]) 09/30/19 MILANA ALSTON) INTMWS During your visit today, we recorded the following informati on about you: Milana Alston APRN.CNP 09/30/2019 4:11 PM Signed Patient needs scheduled for venous ultrasound LAURA ordered d uring today's virtual visit JAMIL Trejo Cma 09/30/2019 4:14 PM Signed PSS to schedule. Maricarmen Vasquez Internal Review And Audit Compliance Allergies As of Date: 09/30/2019 (No Known Allergies) Date Reviewed: 09/21/2019 Reviewed by: Lora Haywood - Fully Assessed Reason for Visit: Results [95] Prescriptions as of 09/30/2019 Sig: HYDROXYZINE HCL 25 MG TABLET TAKE 1 TABLET BY MOUTH EVERYD* LORATADINE 10 MG TABLET Take 10 mg by mouth twice jo ann* TRIAMCINOLONE ACETONIDE 0.1 %* Apply 1 application to affect * FLUOCINONIDE 0.05 % TOPICAL C* Apply 1 application to affect * Problem List As Of Date 09/30/2019 Noted Resolved BPH w/o urinary obs/LUTS [N40.0] 11/20/2005 01/11/2011 Urinary tract infection, site not specified [N3*11/20/2005 0 01/11/2011 Unspecified essential hypertension [I10] 11/20/2005 01/12/20 11 Borderline diabetes mellitus [R73.03] 01/19/2009 01/11/2011 Mixed hyperlipidemia [E78.2] 12/06/2009 01/11/2011 Macrocytic anemia [D53.9] 01/09/2012 04/11/2012 MDS (myelodysplastic syndrome), low grade [D46.*04/11/2012 Sideroblastic anemia, acquired [[id number]] 04/11/2012 02/23/20 15 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 ([id number]) BONE MARROW, ASPIRATE SMEAR, CLOT SECTION, CORE BIOPSY, AND PERIPHERAL BLOOD SMEAR ([id number]; 02/28/2018) - NORMOCELLULAR BONE MARROW (40%) WITH ERYTHROID HYPERPLASIA , DYSERYTHROPOIESIS, AND INCREASED RING SIDEROBLASTS; CONSISTE NT WITH PERSISTENT MYELODYSPLASTIC SYNDROME. - MACROCYTIC ANEMIA. - STAINABLE IRON NOT EVALUABLE. - SEE COMMENT. Comment: The patient is a 69-year-old male with a history of myelodysplastic syndrome with ring sideroblasts. Flow cytome try performed at the referring institution showed no evidence of an abnorm al T-cell population, monotypic B-cell population, abnormal plasma pb l population, or increased myeloid blast population. Cytogenetics performe d at the referring institution showed a normal male karyotype. FISH s tudies performed at the referring institution for 5p/5q, 7p11/7q31, chromosome 8, KMT2A (MLL), and 20q abnormalities were normal. Myeloid next generation sequencing studies performed at the referring institution id entified a pathologic mutation in SF3B1, and a variant of unknown signi ficance in PDGFRA. Overall, the findings are consistent with persistent myelodysplastic syndrome with ring sideroblasts. PERIPHERAL BLOOD: CBC(02/25/18): WBC 4.1 k/uL; Hgb 8.7 g/dL; MCV 116.7 fL; RDW 13.1 %; Plts 340 k/uL Differential manual(%): Segs 63; Lymphs 30; Monos 2; Eos 3; Baso 0; Metamyelocytes 1; Myelocytes 1. Morphology/Interpretation: Macrocytic anemia with ovalocytes , RBC fragments, and teardrop cells. BONE MARROW ASPIRATE Normal % (0-2) 0 % Blasts (1-5) 0 % Promyelo (32-72) 61% Myelos/Metas/Bands/Segs (1-6) 5 % Eosinophils (0-1) 0 % Basophils (0-4) 2 % Monocytes (13-37) 20% Erythroid precursors (7-23) 12% Lymphocytes (0-2) 0 % Plasma cells Myeloid/Erythro (1.5-4): 3.3 Cells counted: 300 Iron stain result: Stainable iron absent; ring sideroblasts present (>15%). Specimen Quality: Aspicular and hemodilute with poor stainin g quality. Megakaryocytes: Absent. Erythropoiesis: Progressive maturation with mild dyspoiesis including nuclear contour irregularities. Granulopoiesis: Progressive maturation. BONE MARROW BIOPSY: Adequacy: Adequate. Cellularity: Normal (30-40%). ME ratio: Decreased. Hematopoiesis: Trilineage maturation with erythroid hyperpla garry. Megakaryocytes: Adequate. Megakaryocyte morphology: Normal. Lymphoid infiltrate: None. Bone trabeculae: Normal. Other: A submitted iron stain highlights focal stainable iro n. A submitted reticulin stain is negative for reticulin fibrosis (MF-0). Immunohistochemical stains for CD34, CD117, glycophorin A, C D42b, myeloperoxidase, CD3, and CD20 were performed at the [facility]. CD34 highlights rare scattered blasts (<2%). CD117 and glyco phorin A highlight subsets of erythroid precursors. CD42b highlights megakaryocytes . Myeloperoxidase highlights granulocytic elements. CD3 and CD20 highlight rare interstitial T- and B-cells, respectively. CLOT SECTION: Marrow particles: Absent. Morphology: N/A. Other: A submitted iron stain is noncontributory. ANCILLARY TESTS: Flow cytometry: Performed at the referring institution. Cytogenetics: Performed at the referring institution. FISH: MDS panel performed at the referring institution. Molecular: Myeloid next generation sequencing studies perfor med at the referring institution. SHARON/PIA/lupis 09/29/2019 Jaden Cooper M.D., Ph.D. (Electronic Signature) SPECIMEN SUBMITTED A: 17 SLIDES ([id number]) CLINICAL DATA BONE MARROW Date of Report: 10/01/2019 Date of Procedure: 09/29/2019 Date of Receipt: 09/29/2019 Submitted by: ALESIA RAMIREZ MD Location: [facility] Diagnostic interpretation performed [facility], [address] [facility] [address]. CLIA Number: [id number] reticulocyte on Abs Retic 0.044 0.0180-0.1000 M/uL Normal 09-21-2019 [facility] ([id number]) Retic% 2.4 0.4-2.0 % High 09-21-2019 [facility] ([id number]) progress on 2019-09 PROGRESS HNO ID: [id number] Normal 09-21-2019 [facility] Author: Ely wheeler ([id number]) Service: ? Author Type: Physician Type: Progress Notes Filed: 09/22/2019 7:58 AM Note Text: PATIENT NAME: Clemencia Garcia. CLINIC NO: [id number]. ATTENDING PHYSICIAN: Ely Alfonso MD. DATE OF SERVICE:?09/21/2019 ? DIAGNOSIS: low-grade MDS, refractory anemia with ring sidero blasts ? HPI: This is an otherwise healthy 69-year-old gentleman who presented with progressive anemia. Patient was diagnosed with?low-grade MDS in 2011.. He has no history of blood transfusion, fever chills or night s weats. Patient had no recurrent infection or bleeding problems. no early sa tiety or weight loss. ? Bone marrow biopsy: ?low-grade myelodysplastic syndrome with ring-sideroblasts. Cytogenetic study was normal 46 XY. FISH for MDS was negativ e. Erythropoietin level was normal (not elevated). IPSS 0 ? Previous treatment:?Aranesp 200 mcg sq?every 14 days?( stop last year because no change or improvement in anemia ) ? He had a repeat bone marrow biopsy performed in [facility] couple years ago. Cytogenetic was normal?AND FISH panel for MDS no identifiable mutations. A SNP analysis showed 2 predominant mutations PDGFRA AND SF3 B1 Missense mutation of uncertain significance.? ? Interim history:?He was placed on prednisone for several wee ks for eczema and his anemia actually improved. His hemoglobin 7.0 - 9.0 g m/dl for this last year and he did not require any transfusion. Despite his anemia, he is still asymptomatic. He has no ches t pain, palpitation, shortness of breath, lightheadedness or dizzine ss. He has mild to moderate fatigue. No change in weight or appetite. N o increased bruising or bleeding. He denies any fever, chills or recurre nt infection. ? All medications AND allergies updated and reviewed by me. ? ? REVIEW OF SYSTEMS: ? CONSTITUTIONAL: ?No fevers, chills, nightsweats, unintended weight loss, or?fatigue. HEENT: ?Denies frequent or severe heaches, nasal congestion/ sinus symptoms, problematic allergy problems. EYES: ?No diplopia or blurry vision. CARDIOVASCULAR: ?No chest pain, dyspnea, palpitations, ortho pnea, PND, ankle edema. PULM: ?No dyspnea, unexplained cough. GI: ?No dysphagia/odynophagia, problematic reflux, constipat ion, diarrhea, changes in stool habits, hematochezia, melena. : ?No new urinary complaints, including dysuria, gross hem aturia or pyuria. NEURO: ?No new balance problems, peripheral weakness/paresth esias or numbness of concern. MUSC-SKEL: ?No new joint pain, swelling, or erythema. PSY: ?No concerns regarding depression, anxiety or panic. INTEGUMENTARY: ?No new skin changes (rash, new or changing m ole, new growth) ? ? PHYSICAL EXAMINATION: 69-year-old well-nourished multiple ge ntleman in no acute distress performance status: 90% BP 132/65 Pulse 74 Temp (Src) 98.2 (Temporal) Wt 176 l b 8 oz (80.1kg) HEENT: Head is normocephalic, atraumatic. Sclerae white, con junctivae pink. PEERL. EOMs are intact. Oropharynx is benign. complexi on pale.+ Pallor LYMPHATICS: There is no palpable adenopathy in the neck, sup raclavicular region, axillae, or groin. LUNGS: Lungs are clear to percussion and auscultation. HEART: Heart is normal without murmurs, gallops, or rubs. ABDOMEN: Soft and nontender without organomegaly. No masses can be palpated. EXTREMITIES: Are without edema. NEUROLOGIC: Exam is physiologic ? LABORATORY DATA:? Component Latest Ref Rng AND Units 09/21/2019 WBC 3.70 - 11.00 k/uL 4.72 RBC 4.20 - 6.00 m/uL 1.86 (L) Hemoglobin 13.0 - 17.0 g/dL 7.2 (L) Hematocrit 39.0 - 51.0 % 21.9 (L) MCV 80.0 - 100.0 fL 117.7 (H) MCH 26.0 - 34.0 pG 38.7 (H) MCHC 30.5 - 36.0 g/dL 32.9 RDW-CV 11.5 - 15.0 % 19.7 (H) Platelet Count 150 - 400 k/uL 428 (H) MPV 9.0 - 12.7 fL 11.2 Component Latest Ref Rng AND Units 09/21/2019 Iron 41 - 186 ug/dL 179 TIBC 232 - 386 ug/dL 207 (L) Transferrin Saturation 15 - 57 % 86 (H) Retic % 0.4 - 2.0 % 2.4 (H) Abs Retic 0.0180 - 0.1000 M/uL 0.044 Ferritin 30.3 - 565.7 ng/mL 833.0 (H) Component Latest Ref Rng AND Units 09/21/2019 Protein, Total 6.3 - 8.0 g/dL 6.5 Albumin 3.9 - 4.9 g/dL 4.4 Calcium 8.5 - 10.2 mg/dL 9.1 Bilirubin, Total 0.2 - 1.3 mg/dL 2.3 (H) Alkaline Phosphatase 38 - 113 U/L 66 AST 14 - 40 U/L 21 Glucose 74 - 99 mg/dL 110 (H) BUN 9 - 24 mg/dL 17 Creatinine 0.73 - 1.22 mg/dL 0.85 Sodium 136 - 144 mmol/L 137 Potassium 3.7 - 5.1 mmol/L 4.2 Chloride 97 - 105 mmol/L 104 CO2 22 - 30 mmol/L 24 Anion Gap 9 - 18 mmol/L 9 ALT 10 - 54 U/L 15 eGFR- >60 eGFR-All Other Races . >60 LD 135 - 225 U/L 168 ? ASSESSMENT:?This is a 69-year-old gentleman with low-grade m yelodysplastic disease (RARB). -Patient is?asymptomatic?despite severe anem ia without requirement for blood transfusion. IPSS = 0 ? PLAN:? - Continue monitor CBC every 3 months - Completed his hepatitis B vaccine series last year and he will need the flu vaccine this year. - If he requires blood transfusion in the future, repeat bon e marrow biopsy and consider a clinical trial or Vidaza treatment for refractory anemia. - Repeat CBC, CMP, LDH, ferritin and OV in 1 year ? Ely Alfonso MD Cc: Dr. Messi Fernández ld on 2019-09-21 LD 168 135-225 U/L Normal 09-21-2019 [facility] ([id number]) Comment: Performed By: #### CBCDIF ## ##[address] [phone] iron and tibc on 09-10-00 Iron [Mass/Vol] 179 41-186 ug/dL Normal 09-21-2019 [facility] ([id number]) Comment: Performed By: #### IRON, ANDREY R ####[address] [phone]- [phone] TIBC 207 232-386 ug/dL Low 09-21-2019 [facility] ([id number]) Comment: Performed By: #### IRON, ANDREY R ####[address] [phone]- [phone] Transferrin Saturatn 86 15-57 % High 0 [facility] ([id number]) Comment: Performed By: #### IRON, ANDREY R ####[address] [phone]- [phone] ferritin on 2019-09 Ferritin [Mass/Vol] 833.0 30.3-565.7 ng/mL High 0 [facility] (26468) Comment: Performed By: #### IRON, ANDREY R ####[address] [phone]- [phone] comp metabolic panel on 2019-09-21 Albumin [Mass/Vol] 4.4 3.9-4.9 g/dL Normal 09-21-2019 [facility] (24711) Comment: Performed By: #### CBCDIF ## ##[place] [address], [place] [phone] ALP [Catalytic activity/Vol] 66 38-113 U/L Normal 0 09-21-2019 [facility] ([id number]) Comment: Performed By: #### CBCDIF ## ##[place] [address], [place] [phone] ALT [Catalytic activity/Vol] 15 10-54 U/L Normal 0 09-21-2019 [facility] ([id number]) Comment: Performed By: #### CBCDIF ## ##[place] [address], [place] [phone] Anion gap [Moles/Vol] 9 9-18 mmol/L Normal 09-21-19 [facility] (05798) Comment: Performed By: #### CBCDIF ## ##[place] [address], [place] [phone] AST [Catalytic activity/Vol] 21 14-40 U/L Normal 0 09-21-2019 [facility] (53330) Comment: Performed By: #### CBCDIF ## ##[place] [address], [place] [phone]- [phone] Bilirubin [Mass/Vol] 2.3 0.2-1.3 mg/dL High 0 [facility] (56861) Comment: Performed By: #### CBCDIF ## ##[facility], [place] [phone] Calcium [Mass/Vol] 9.1 8.5-10.2 mg/dL Normal 09-21-2019 [facility] (18339) Comment: Performed By: #### CBCDIF ## ##[place] [address], [place] [phone] Chloride [Moles/Vol] 104 97-105 mmol/L Normal 0 [facility] (56287) Comment: Performed By: #### CBCDIF ## ##[facility] [address], [place] [phone]- [phone] CO2 [Moles/Vol] 24 22-30 mmol/L Normal 09-21-2019 [facility] (16485) Comment: Performed By: #### CBCDIF ## ##[facility], [place] [phone]- [phone] Creatinine [Mass/Vol] 0.85 0.73-1.22 mg/dL Normal 09-21-19 20 [facility] (05853) Comment: Performed By: #### CBCDIF ## ##[place] [address] [address], [place] [phone]- [phone] eGFR- Amer. >60 Normal 09-21-2019 [facility] (68699) Comment: Performed By: #### CBCDIF ## ##[place] [address] [address], [place] [phone]- [phone] GFR/1.73 sq M predicted >60 mL/min/{1.73_m2} Normal 09-21-2019 [facility] among non-blacks [facility] (19701) (S/P/Bld) [Vol rate/Area] Comment: Result Comment: eGFR (Estima parag GFR) Units of measure: mL/min/1.73 meters squared eGFR is derived from the ree xpressed MDRD Study equation using the following parameters: serum creatinine, age, gender and race. The creatinine assay has been calibrated to be traceable to IDMS. An eGFR <60 mL/min/1.73m2 fo r >3 months is consistent with chronic kidney disease. Refer to KDOQI guidelines for clinical interpretation. In patients with unstable re nal function, e.g. those with acute kidney injury, the eGFR may not accurately reflect actual GFR. Performed By: #### CBCDIF ## ##[facility], [place] [phone]- [phone] Glucose [Mass/Vol] 110 74-99 mg/dL High 09-21-2019 [facility] (64012) Comment: Result Comment: The [place] Diabetes Association (ADA) provides guidance for cutoff values for fasting glucose and random glucose. The ADA defines fasting as no caloric intake for at least 8 hours. Fas ting plasma glucose results between 100 to 125 mg/dL indicate increased risk for diabetes (prediabetes). Fasting plasma glucose resul ts greater than or equal to 126 mg/dL meet the criteria for diagnosis of diabetes. In the absence of unequivocal hyperglycemia, results should be confirmed by repeat testing. In a patient with classic s ymptoms of hyperglycemia or hyperglycemic crisis, random plasma glucose results greater than or equal to 200 mg/dL meet the criteria for diagnosis of diabetes. Reference: Standards of [facility] Care in Diabetes 2016, [place] Diabetes Association. Diabetes Care. 2016.39(Suppl 1). Performed By: #### CBCDIF ## ##[address] [phone] Potassium [Moles/Vol] 4.2 3.7-5.1 mmol/L Normal 09-21-19 [facility] (38970) Comment: Performed By: #### CBCDIF ## ##[address] [phone] Protein [Mass/Vol] 6.5 6.3-8.0 g/dL Normal 09-21-2019 [facility] (93254) Comment: Performed By: #### CBCDIF ## ##[address] [phone] Sodium [Moles/Vol] 137 136-144 mmol/L Normal 09-21-2019 [facility] (51218) Comment: Performed By: #### CBCDIF ## ##[address] [phone] Urea nitrogen [Mass/Vol] 17 9-24 mg/dL Normal 09-20 [facility] (14062) Comment: Performed By: #### CBCDIF ## ##[address] [phone]- [phone] cnovsp on 1 CNOVSP Visit (SP) Office (SHAYNA) Normal [facility] CLEMENCIA GARCIA ([id number]) 1950 [facility] Date Time Provider Department ([id number]) 09/21/19 11:30 AM ELY ALFONSO During your visit today, we recorded the following informati on about you: Temperature Pulse Blood pressure Weight 98.2 degrees 74/minute 132/65 80.1 kg Ely Alfonso MD 09/22/2019 7:58 AM Signed PATIENT NAME: Clemencia Garcia. CLINIC NO: [id number]. ATTENDING PHYSICIAN: Ely Alfonso MD. DATE OF SERVICE:?09/21/2019 ? DIAGNOSIS: low-grade MDS, refractory anemia with ring sidero blasts ? HPI: This is an otherwise healthy 69-year-old gentleman who presented with progressive anemia. Patient was diagnosed with?l ow-grade MDS in 2011.. He has no history of blood transfusion, fever chills or night sweats. Patient had no recurrent infection or bleeding problems. no early satiety o r weight loss. ? Bone marrow biopsy: ?low-gra de myelodysplastic syndrome with ring-sideroblasts. Cytogenetic study was normal 46 XY. FISH for MDS was negative. Erythropoietin level was normal (not elevated). IPSS 0 ? Previous treatment:?Aranesp 200 mcg sq?every 14 days?( stop last year because no change or improvement in anemia ) ? He had a repeat bone marrow biopsy performed in [facility] couple years ago. Cytogenetic was normal?AND FISH panel for M DS no identifiable mutations. 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 ? Interim history:?He was placed on prednisone for several weeks for eczema and his anemia actually improved. His hemoglobin 7.0 - 9.0 gm/dl for this last year and he did not require any transfusion. Despite his anemia, he is still asymptomatic. He has no ches t pain, palpitation, shortness of breath, lighth eadedness or dizziness. He has mild to moderate fatigue. No change in weight or appetite. No incr eased bruising or bleeding. He denies any fever, chills or recurrent infection . ? All medications AND allergies updated and reviewed by me. ? ? REVIEW OF SYSTEMS: ? CONSTITUTIONAL: ?No fevers, chills, nightsweats, unintended weight loss, or?fatigue. HEENT: ?Denies frequent or severe heaches, nasal congestio n/sinus symptoms, problematic allergy problems. EYES: ?No diplopia or blurry vision. CARDIOVASCULAR: ?No chest pain, dyspnea, palpitations, orthopnea, PND, ankle edema. PULM: ?No dyspnea, unexplained cough. GI: ?No dysphagia/odynophagia, problematic reflux, constipat ion, diarrhea, changes in stool habits, hematochezia, melena. : ?No new urinary complaints, including dysuri a, gross hematuria or pyuria. NEURO: ?No new balance problems, peripheral weak ness/paresthesias or numbness of concern. MUSC-SKEL: ?No new joint pain, swelling, or erythema. PSY: ?No concerns regarding depression, anxiety or panic. INTEGUMENTARY: ?No new skin changes (rash, new or white ging mole, new growth) ? ? PHYSICAL EXAMINATION: 69-yea r-old well-nourished multiple gentleman in no acute distress performance status: 90% BP 132/65 Pulse 74 Temp (Src) 98.2 (Temporal) Wt 176 lb 8 oz (80.1kg) HEENT: Head is normocephalic, atraumatic. Sclerae white, c onjunctivae pink. PEERL. EOMs are intact. Oropharynx is benign. complexion pal e.+ Pallor LYMPHATICS: There is no palpable adenopathy in the neck, sup raclavicular region, axillae, or groin. LUNGS: Lungs are clear to percussion and auscultation. HEART: Heart is normal without murmurs, gallops, or rubs. ABDOMEN: Soft and nontender without organomegaly. No m asses can be palpated. EXTREMITIES: Are without edema. NEUROLOGIC: Exam is physiologic ? LABORATORY DATA:? Component Latest Ref Rng AND Units 09/21/2019 WBC 3.70 - 11.00 k/uL 4.72 RBC 4.20 - 6.00 m/uL 1.86 (L) Hemoglobin 13.0 - 17.0 g/dL 7.2 (L) Hematocrit 39.0 - 51.0 % 21.9 (L) MCV 80.0 - 100.0 fL 117.7 (H) MCH 26.0 - 34.0 pG 38.7 (H) MCHC 30.5 - 36.0 g/dL 32.9 RDW-CV 11.5 - 15.0 % 19.7 (H) Platelet Count 150 - 400 k/uL 428 (H) MPV 9.0 - 12.7 fL 11.2 Component Latest Ref Rng AND Units 09/21/2019 Iron 41 - 186 ug/dL 179 TIBC 232 - 386 ug/dL 207 (L) Transferrin Saturation 15 - 57 % 86 (H) Retic % 0.4 - 2.0 % 2.4 (H) Abs Retic 0.0180 - 0.1000 M/uL 0.044 Ferritin 30.3 - 565.7 ng/mL 833.0 (H) Component Latest Ref Rng AND Units 09/21/2019 Protein, Total 6.3 - 8.0 g/dL 6.5 Albumin 3.9 - 4.9 g/dL 4.4 Calcium 8.5 - 10.2 mg/dL 9.1 Bilirubin, Total 0.2 - 1.3 mg/dL 2.3 (H) Alkaline Phosphatase 38 - 113 U/L 66 AST 14 - 40 U/L 21 Glucose 74 - 99 mg/dL 110 (H) BUN 9 - 24 mg/dL 17 Creatinine 0.73 - 1.22 mg/dL 0.85 Sodium 136 - 144 mmol/L 137 Potassium 3.7 - 5.1 mmol/L 4.2 Chloride 97 - 105 mmol/L 104 CO2 22 - 30 mmol/L 24 Anion Gap 9 - 18 mmol/L 9 ALT 10 - 54 U/L 15 eGFR- >60 eGFR-All Other Races . >60 LD 135 - 225 U/L 168 ? ASSESSMENT:?This is a 69-year-old gentleman with low-grade m yelodysplastic disease (RARB). -Patient is?asymptomatic?despite severe anem ia without requirement for blood transfusion. IPSS = 0 ? PLAN:? - Continue monitor CBC every 3 months - Completed his hepatitis B vaccine series last year and he will need the flu vaccine this year. - If he requires blood trans fusion in the future, repeat bone marrow biopsy and consider a clinical trial or Vidaza treatment for refractory anemia. - Repeat CBC, CMP, LDH, ferritin and OV in 1 year ? Ely Alfonso MD Cc: Dr. 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 Follow-up and Disposition History Recorded Prescriptions as of 09/21/2019 Sig: HYDROXYZINE HCL 25 MG TABLET TAKE 1 TABLET BY MOUTH EVERYD* LORATADINE 10 MG TABLET Take 10 mg by mouth twice jo ann* TRIAMCINOLONE ACETONIDE 0.1 %* Apply 1 application to affect * FLUOCINONIDE 0.05 % TOPICAL C* Apply 1 application to affect * Problem List As Of Date 09/21/2019 Noted Resolved BPH w/o urinary obs/LUTS [N40.0] 11/20/2005 01/11/2011 Urinary tract infection, site not specified [N3*11/20/2005 0 01/11/2011 Unspecified essential hypertension [I10] 11/20/2005 01/12/20 11 Borderline diabetes mellitus [R73.03] 01/19/2009 01/11/2011 Mixed hyperlipidemia [E78.2] 12/06/2009 01/11/2011 Macrocytic anemia [D53.9] 01/09/2012 04/11/2012 MDS (myelodysplastic syndrome), low grade [D46.*04/11/2012 Sideroblastic anemia, acquired [DXV4824] 04/11/2012 02/23/20 15 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] 03/25/2013 Special screening for malignant neoplasms, colo*10/07/2014 0 10/07/2014 Kidney stones [N20.0] Encounter Status:Closed by ELY ALFONSO MD on 09/22/19 cbc and differential on 2019-09-21 Abs Baso 0.06 <0.11 k/uL Normal 09-21-2019 [facility] ([id number]) Comment: Performed By: #### CBCDIF ## ##[place] [address] [address] [place] [phone] Abs Piatt 0.42 <0.87 k/uL Normal 09-21-2019 [facility] (05585) Comment: Performed By: #### CBCDIF ## ##[place] [address], [place] [phone]- [phone] Abs Neut 3.26 1.45-7.50 k/uL Normal 09-21-2019 [facility] (98792) Comment: Performed By: #### CBCDIF ## ##[place] [address] [address] [place] [phone] Absolute nRBC 0.03 <0.01 k/uL High 09-21-2019 [facility] (93787) Comment: Performed By: #### CBCDIF ## ##[place] [address], [place] [phone]- [phone] Basophils/100 WBC (Bld) 1.3 % Normal 2019 [facility] (98401) Comment: Performed By: #### CBCDIF ## ##[place] [address] [address] [place] [phone] DTYPE Auto Diff Normal 09-21-2019 [facility] (68657) Comment: Performed By: #### CBCDIF ## ##[place] [address] [address] [place] [phone]- [phone] Eosinophils (Bld) [#/Vol] 0.27 <0.46 k/uL Normal [facility] (71758) Comment: Performed By: #### CBCDIF ## ##[place] [address], [place] [phone]- [phone] Eosinophils/100 WBC (Bld) 5.7 % Normal 06-0 [facility] (51321) Comment: Performed By: #### CBCDIF ## ##[place] [address] [address] [place] [phone]- [phone] Erythrocyte distribution 19.7 11.5-15.0 % High 09-20 [facility] width (RBC) [Ratio] [facility] (46275) Comment: Performed By: #### CBCDIF ## ##[place] [address], [place] [phone]- [phone] Hematocrit (Bld) [Volume 21.9 39.0-51.0 % Low 09-20 [facility] fraction] (81074) Comment: Performed By: #### CBCDIF ## ##[place] [address] [address], [place] [phone]- [phone] Hemoglobin (Bld) 7.2 13.0-17.0 g/dL Low 09-21-2019 [facility] [Mass/Vol] [facility] (32360) Comment: Performed By: #### CBCDIF ## ##[place] [address], [place] [phone]- [phone] Lymphocytes (Bld) [#/Vol] 0.69 1.00-4.00 k/uL Low 06-0 [facility] (68525) Comment: Performed By: #### CBCDIF ## ##[place] [address], [place] [phone]- [phone] Lymphocytes/100 WBC (Bld) 14.6 % Normal 06-0 [facility] (84503) Comment: Performed By: #### CBCDIF ## ##[place] [address] [address], [place] [phone] MCH (RBC) [Entitic mass] 38.7 26.0-34.0 pG High 09-20 [facility] (53406) Comment: Performed By: #### CBCDIF ## ##[address], [place] [phone]- [phone] MCHC (RBC) [Mass/Vol] 32.9 30.5-36.0 g/dL Normal 09-21-19 [facility] (25774) Comment: Performed By: #### CBCDIF ## ##[address], [place] [phone]- [phone] MCV (RBC) [Entitic vol] 117.7 80.0-100.0 fL High 09-20 [facility] (58593) Comment: Performed By: #### CBCDIF ## ##[address], [place] [phone]- [phone] Monocytes/100 WBC (Bld) 8.9 % Normal 2019 [facility] (80187) Comment: Performed By: #### CBCDIF ## ##[address], [place] [phone]- [phone] Neutrophils/100 WBC (Bld) 69.5 % Normal [facility] (47105) Comment: Performed By: #### CBCDIF ## ##[address], [place] [phone]- [phone] NRBCs 0.6 0 /100 WBC High 09-21-2019 [facility] (58287) Comment: Performed By: #### CBCDIF ## ##[place] [address] [address], [place] [phone]- [phone] Platelet mean volume 11.2 9.0-12.[address] [facility] (Bld) [Entitic vol] [facility] (35657) Comment: Performed By: #### CBCDIF ## ##John [address] [phone]- [phone] Platelets (Bld) [#/Vol] 428 150-400 k/uL High 2019 [facility] (05697) Comment: Performed By: #### CBCDIF ## ##[address] [phone] RBC (Bld) [#/Vol] 1.86 4.20-6.00 m/uL Low 09-21-2019 [facility] (87029) Comment: Performed By: #### CBCDIF ## ##[address] [phone]- [phone] Review Done Normal 09-21-2019 [facility] (92664) Comment: Performed By: #### CBCDIF ## ##[address] [phone]- [phone] WBC (Bld) [#/Vol] 4.72 3.70-11.00 k/uL Normal 09-21-2019 [facility] (81173) Comment: Performed By: #### CBCDIF ## ##[address] [phone]- [phone] cnpn on 2019-09-04 CNPN Telephone (SHAYNA) Normal 09-04-2019 [place] CLEMENCIA Green ([id number]) 1950 [facility] Date Time Provider Department ([id number]) 09/04/19 ELY ALFONSO During your visit today, we recorded the following informati on about you: Ely Alfonso MD 09/04/2019 4:31 PM Signed Patient requests an appointment for follow-up. Repeat CBC, CMP, LDH, iron study OV next week MD Nicho Cotter 09/07/2019 8:49 AM Signed Patient is already scheduled on 09/20. Allergies As of Date: 09/04/2019 (No Known Allergies) Date Reviewed: 01/07/2019 Reviewed by: Prachi Giron LPN - Fully Assessed Reason for Visit: Appointment [186] Prescriptions as of 09/04/2019 Sig: TRIAMCINOLONE ACETONIDE 0.1 %* Apply 1 application to affect * FLUOCINONIDE 0.05 % TOPICAL C* Apply 1 application to affect * Problem List As Of Date 09/04/2019 Noted Resolved BPH w/o urinary obs/LUTS [N40.0] 11/20/2005 01/11/2011 Urinary tract infection, site not specified [N3*11/20/2005 0 01/11/2011 Unspecified essential hypertension [I10] 11/20/2005 01/12/20 11 Borderline diabetes mellitus [R73.03] 01/19/2009 01/11/2011 Mixed hyperlipidemia [E78.2] 12/06/2009 01/11/2011 Macrocytic anemia [D53.9] 01/09/2012 04/11/2012 MDS (myelodysplastic syndrome), low grade [D46.*04/11/2012 Sideroblastic anemia, acquired [ALG2332] 04/11/2012 02/23/20 15 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 Pt has a personal history of polyps . Pt needs office visit prior/M AC anesthesia recommended by Dr. Capellan. Please call pt and schedule with Stanley Perdue or Aimee Zaldivar. Tena Chawla, RN Elisabet Milagros Pss 09/15/2019 3:43 PM Signed 1st failed attempt to contact patient, left message. -Elisabet Ruddy evansbach Pss Elisabet Milagros Pss 10/22/2019 2:24 PM Signed 2nd failed attempt to contact patient, left message to retur n call. -Elisabet Milagros Pss Elisabet Milagros Pss 10/28/2019 3:42 PM Signed Contacted patient, He declined to schedule, He wants t o skip this year. -Elisabet Mil[facility]ros [facility] Allergies As of Date: 08/24/2019 (No Known Allergies) Date Reviewed: 01/07/2019 Reviewed by: Prachi Giron LPN - Fully Assessed Reason for Visit: Outpatient Colonoscopy [482] Prescriptions as of 08/24/2019 Sig: TRIAMCINOLONE ACETONIDE 0.1 %* Apply 1 application to affect * FLUOCINONIDE 0.05 % TOPICAL C* Apply 1 application to affect * Problem List As Of Date 08/24/2019 Noted Resolved BPH w/o urinary obs/LUTS [N40.0] 11/20/2005 01/11/2011 Urinary tract infection, site not specified [N3*11/20/2005 0 01/11/2011 Unspecified essential hypertension [I10] 11/20/2005 01/12/20 11 Borderline diabetes mellitus [R73.03] 01/19/2009 01/11/2011 Mixed hyperlipidemia [E78.2] 12/06/2009 01/11/2011 Macrocytic anemia [D53.9] 01/09/2012 04/11/2012 MDS (myelodysplastic syndrome), low grade [D46.*04/11/2012 Sideroblastic anemia, acquired [DDG1521] 04/11/2012 02/23/20 15 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 Author Type: Physician Type: Progress Notes Filed: 07/20/2019 10:33 PM Note Text: [facility] would not let me log on, so patient left the visit. Booked later in the afternoon. Issues with [facility] noted in progress note (though that lists jensen solano as a NoShow even though he was seen. Had to book the appointment withi n [facility] on desktop. progress on 2019-06 PROGRESS HNO ID: [id number] Normal 07-20-2019 [facility] Author: Messi Fernández [place] ([id number]) Service: ? Author Type: Physician Type: Progress Notes Filed: 07/20/2019 10:26 PM Note Text: This Team Access Model visit is a virtual encounter. It requ ired patient-provider interaction for the medical decision making as documented below. Issues with logging onto [facility] so that patient Left d uring first of three scheduled virtual visits this afternoon; then problems with loss of Video second virtual visit. Tried to switch to iPhone which terminated the first successful connection. Completed visit in third schedu led visit. This note was created using [employer]. Subjective Clemencia Garcia is a 68 year old male. Patient presents with: Rash SUBJECTIVE: Clemencia Garcia is a 68 year old year old scheduled for virtu al visit after my chart messages regarding rash over the weekend. See ThoughtSpothart messages regarding ongoing pruritis rash that hernandez s been ongoing for months. Original message ? 8:25 AM I am in [place], had a rash start about 02/15/2019. I 've been diagnosed with eczema through a [facility] [place] [place] Prior to the diagnosis I was prescribed Prednisone 54 pills regiment which worked to stop the itch a nd the rash disappeared but came back as soon as the pills ended. After the skin biopsy I was prescribed Triamcinone Acetonide cream 0.1% 14 days use, twice day, 7 days off and repeat. The first go-round worked great, the second time less so and now my third 14 day period, I'm now in my 7th day, twice a day, there has been no improvement and its as bad as ever. I have a very itchy rash over 80% of my body, (arms, legs, back, to rso and back of hands) some bumps are liquid filled. Is there any help yo u can offer through an online appointment or please recommend a doctor idris alejandro can? Thank you. Reply to my questions: 14 days on (not 7) of steroid cream 7 days off, I'm in the t hird go round, ending SaturdayJuly 20. So that's about 2 months all told , 3 X 21 days. - I've taken Zyrtec 10mg tablets with little to no effect. S hould I consider one of the others? - I've been using Basic Dial and Dove bar soap, Dove seems t o be the better of the 2 since is sooths a little more because of the moisturizer. - Gold Reyes Ultimate lotion AND Gold Reyes Extra Strength T riple Action Body Powder, no good. Cortizone 10 Creme used on hot spots with n o effect that I could feel. - I was treated by local [facility] for fungal infection at first, 4 to 5 months ago. Prior to skin biopsy I was prescribed Ketoc onazole Cream 2% and Nystop Nystatin Powder, no effect. - When I first went to the duplex trimmer 2 months ago, the w orst areas of itch were neck/collarbone, armpits, groin and eyes. Now thos e areas are the least problem areas. - The itch is truly maddening, the only relief I have found is hot water and I know that's probably making it worse, (my skins not dr y since I'm using the steroid cream)but not sleeping and almost vibratin g with itch 24 hours a day makes me do it to get some temporary relief, ramiro n just for a few hours. - The rash looks like dozens of 1/2 size to full size mosqui to bites, doesn't look like ringworm to me Reviewed that was treated with antifungal and that may have helped the rash that was in the axilla, groin and collarbone areas--the se areas no longer have any rash. Discussed that when he had the biopsy done at the dermatolog ist, he did not have the type of rash he has right now which is the bump s all over arms and legs and torso pursues worst on the back) does stil l itchy like the prior rash was. Describes the rash is like mosquito bite s but smaller. He did try the Zyrtec 10 mg at night??does help some of the itching but has not helped him sleep better at nighttime. Initially was sedating, but after a couple days, the sedation has not been significant. Plans to go to the store today so that he can get the Cerave lotion as d iscussed (with pramoxin) and Claritin for daytime use. Reviewed that the prednisone was what helped the best with g etting the rash itching resolved. However, noted that as he tapered the prednisone, the rash and itching had started to come back before who is done with the taper. Has not had a rash like this before. No no associated proble ms such as fevers, trouble breathing, and in bowel habits. He is tired from not being sleep well at night because of the itching being so se lisa. Noted that he stopped going out in the sun and may be a oyhana le better with regards to itching. At that he still done at [facility]. PAST MEDICAL HISTORY Diagnosis Date - Kidney stones - MDS (myelodysplastic syndrome), low grade (HCC) Previously seeing Dr. Alfonso - Sideroblastic anemia (HCC) Current Outpatient Medications Medication Sig - fluocinonide (LIDEX) 0.05 % cream Apply 1 application to a ffected area once daily. No current facility-administered medications for this visit. Note that on Reconc[facility] meds, they have listed prednisone tap er dispensed 06/23/2019, but he has not gotten any steroids this year. Review of Systems See MyChart messages Rash the main issue. Disrupts sleep. Fatigued. Objective There were no vitals taken for this visit. Physical Exam Eyes: General: No scleral icterus. Skin: Findings: Rash present. Comments: Noted on arms on Virtual visit and on pictures; he indicates that has rash on back too but did not view during virtual vi sit Neurological: Mental Status: He is alert and oriented to person, place, an d time. Psychiatric: Mood and Affect: Mood normal. Speech: Speech normal. Behavior: Behavior normal. Thought Content: Thought content normal. Judgment: Judgment normal. Occasionally itching anterior chest. Does look fatigued but he is not lethargic. Reviewed pictures patient downloaded to Virtual Visit after finished appointment (could not view while doing the Virtual Visit). Patient tried to hold arm up to computer camera but resoluti on not as good as the pictures he had taken. Looked like there may have bee n some larger welt like lesion on upper arm, but patient stated that all t he bumps seemed uniform in size which is what the pictures looked lik e with multiple papular lesions mostly concentrated on extensor nhung face of the arm in the picture he sent and when he held his arm up to th e camera. Did not see any rodger his face. Assessment and Plan Encounter Diagnosis ICD-10-CM 1. Chronic eczema L30.9 predniSONE (DELTASONE) 10 mg tablet Diagnosied with skin biopsy. Possible rebound rash with tape red steroid or with intermittent steroid treatment.Rule out urticarial r emilio What can be seen of the rash on the pictures still looks ecz ematous but lots of small welt like lesions noted. Rule out atypical urt icarial rash. Pictures do not look like prurigo nodularis pictures. Given his severity of the itching, would still had the antih istamines to help with the pruritus. As noted, he will start using the Cerave lotion with the pra moxin--states he did read about the Pramoxin and how could help with the i tching. Discussed how we will taper the prednisone??we'll start at a lower dose then 60 mg he recalls being started on before. We can slow t he taper down at any point. If he develops itching when he steps down to l ower dose, can go back up to the prior dose and we'll extend that step before trying to lower the dose again. He distended antihistamines to keep itching under control while we try to taper the prednisone. As above not adequate, need to consider adding an H2 jeannie . Also might need a higher dose topical steroids; however, if he is havin g a rebound rash because of the triamcinolone cream that he's been on, o n avoid higher strength steroids on his skin. Might need to consider taperi ng to a lower strength steroid. Noted that [id number] steroid was to o low of a potency to help and current triamcinolone has not been adequ ate. However, he has not been taking anything helped with the itching. See my response is initial note??also given other options to try a, including baby soap/shampoo and cold compresses to help with itching. Discussed need for referral to duplex trimmer if rash and itc tessa is not improving. We'll see if we can do a virtual visit with the brandy ermatologist up in [place] if needed. Above issues addressed with patient. Patient involved in shared decision making for management of medical issues. History and medications reviewed. [facility] updated as needed Refills and/or prescriptions taken care of and meds adjusted as indicated after reviewed history, exam and labs. Further evaluation and treatment as indicated. The majority of the visit was spent counseling and/or coordi nating care for the patient. Virtual Visit time time was at least 22 min utes. (noted that had trouble with [facility] site and had to reschedule from 4:00 visit to 4:20 in [facility] then schedule Virtual Visit on line tw ice--at 5:15 then again 5:23 when video cut out and was not able to reope n the 5:15 slot). Messi Fernández MD Vital Signs Vital Sign Description Value / Unit Date Location The following section is limited to 5 en tries per type and includes entries from the following time range: 20200112 - 20191223 2. Body weight 81.65 kg 01-12-2020 [facility] ([id number]) BP Diastolic 56 mm[Hg] 01-12-2020 [facility] ([id number]) BP Systolic 126 mm[Hg] 01-12-2020 [facility] ([id number]) Pulse (Heart Rate) 84 /min 01-12-2020 [place] [facility] ([id number]) Respiratory Rate 12 /min 01-12-2020 [place] [facility] ([id number]) Encounters Date Type Reason Provider Location 01-12-2020 - Patient encounter Patient encounter Messi Fernández In ternal Medicine 01-12-2020 procedure status Lianne Comment: Medicare annual wellness vis it, subsequent (Primary Dx); Chronic eczema; Need for vaccination 01-26-2020 - 01-26-2020 Telephone encounter Ely Alfonso Hematology/Oncology Comment: Results (blood transfusion) Procedures Procedure Name Date Provider Location INFLUENZA SEASONAL QUADRIVALENT 01-12-[address] [facility] ([id number]) HIGH DOSE AGE 65+ Antibody screen 10-01-2019 [facility] ([id number]) Comment: Performed By: #### TSCR #### [facility] [address], [place] [phone] Colonoscopy 10-07-2014 - 10-07-2014 [facility] ([id number]) Plan of Treatment Plan Description Date Location ADVANCE DIRECTIVE ADVANCE DIRECTIVE 01-11-2025 - [facility] inic DISCUSSION DISCUSSION 01-11-2025 ([id number]) DTAP,TDAP,TD (2 - Td) DTAP,TDAP,TD (2 - Td) 03-11-2024 - [facility] 03-11-2024 ([id number]) DIABETES SCREEN DIABETES SCREEN 11-03-2022 - [facility] 11-03-2022 ([id number]) LIPID SCREEN LIPID SCREEN 12-20-2021 - [facility] 12-20-2021 ([id number]) COLONOSCOPY COLONOSCOPY 10-08-2019 - [facility] 10-08-2019 ([id number]) PROSTATE CANCER PROSTATE CANCER 03-17-2019 - [facility] SCREENING DISCUSSION SCREENING DISCUSSION 03-17-2019 ([id number] ) SHINGRIX VACCINE (2 of SHINGRIX VACCINE (2 of 01-16-2013 - [facility] 3) 3) 01-16-2013 ([id number]) ABDOMINAL AORTIC ABDOMINAL AORTIC 1952 - [facility] ic ANEURYSM SCREENING ANEURYSM SCREENING 1952 ([id number]) no information [facility] ([id number]) Immunizations Vaccine Notes Status Date Location Hepatitis B Adult hepatitis B vaccine, (completed) 04-10-2019 - [facility] adult dosage 04-10-2019 ([id number]) Hepatitis B Adult hepatitis B vaccine, (completed) 10-22-2018 - [facility] adult dosage 10-22-2018 ([id number]) Hepatitis B Adult hepatitis B vaccine, (completed) 09-24-2018 - [facility] adult dosage 09-24-2018 ([id number]) Influenza Vaccine, influenza virus (completed) 02-03-2013 - [facility] Split-Non Spec vaccine, unspecified 02-03-2013 (4419 5) formulation Influenza Vaccine, influenza virus (completed) 01-09-2011 - [facility] Split-Non Spec vaccine, unspecified 01-09-2011 (4419 5) formulation Influenza Vaccine, influenza virus (completed) 01-19-2009 - [facility] Split-Non Spec vaccine, unspecified 01-19-2009 (4419 5) formulation Influenza Seasonal - influenza, high dose (completed) 01-07-2019 - [facility] High Dose - Age 65+ seasonal, 01-07-2019 (45293) preservative-free Influenza Seasonal - influenza, high dose (completed) 02-03-2018 - [facility] High Dose - Age 65+ seasonal, 02-03-2018 ([id number]) preservative-free Influenza Seasonal - influenza, high dose (completed) 02-19-2016 - [facility] High Dose - Age 65+ seasonal, 02-19-2016 ([id number]) preservative-free influenza, high-dose, influenza, high-dose, (completed) 01-12-2020 - [facility] quadrivalent vaccine quadrivalent vaccine 01-12-2020 ([id number]) (FLUZONE HIGH DOSE (FLUZONE HIGH DOSE QUADRIVALENT) QUADRIVALENT) Influenza Seasonal influenza, injectable, (completed) 03-15-2015 - [facility] Inj Quad Age 6 Mo - quadrivalent, contains 03-15-2015 ([id number]) 64 Yrs preservative Influenza Seasonal influenza, seasonal, (completed) 01-26-2014 - [facility] Inj Age 3+ injectable 01-26-2014 (16817) Novel Influenza H1N1, novel (completed) 04-20-2009 - [facility] preservative free [id number], 04-20-2009 (441 [id number]) preservative-free, injectable Pneumococcal-13 Vac pneumococcal conjugate (completed) 12-31-2017 - [facility] Conjugate vaccine, 13 valent 12-31-2017 (12424) Pneumovax pneumococcal (completed) 01-07-2019 - [facility] c polysaccharide vaccine, 01-07-2019 (441 95) 23 valent TD Adult tetanus and diphtheria (completed) 08-11-2003 - [facility] toxoids, adsorbed, 08-11-2003 (05340) preservative free, for adult use (2 Lf of tetanus toxoid and 2 Lf of diphtheria toxoid) Tdap (Age 7+) tetanus toxoid, reduced (completed) 03-11-2014 - [facility] diphtheria toxoid, and 03-11-2014 (4419 5) acellular pertussis vaccine, adsorbed Zostavax zoster vaccine, live (completed) 11-21-2012 - [facility] 11-21-2012 ([id number]) Payers Payer Name Policy Number Location MEDICARE [id number] [facility] (44 195) MMO [id number] [facility] (44 195) The following information is from the original human readable contentNo Payer Records Found Social History Type Social History Date Location Description Tobacco smoking status Former smoker 09-21-2019 - [facility] NHIS 09-21-2019 ([id number]) History of tobacco use Current smoker 11-17-1984 [facility] ([id number]) History of tobacco use Cigarette Smoker 11-17-1984 [facility] ([id number]) Cigarettes smoked 09-21-2019 - [facility] ic current (pack per day) 09-21-2019 (13503) - Reported Tobacco use and Never used 09-21-2019 - [facility] exposure 09-21-2019 (29783) Alcohol intake Current non-drinker of 09-21-2019 [facility] alcohol (finding) 09-21-2019 (40668) Sex Assigned At Male [facility] ([id number]) Exposure to SARS-CoV-[address] [facility] (event) (24691) The following information is from the original human DivvyCloudable contentNo Social History Records Found History of Past Illness Problem Noted Date Resolved Date Special screening for malignant neoplasms, colon 10/07/2014 10/07/2014 Sideroblastic anemia, acquired 04/11/2012 5 Macrocytic anemia 01/09/2012 04/11/2012 Mixed hyperlipidemia 12/06/2009 01/11/2011 Borderline diabetes mellitus 01/19/2009 01/11/2011 Hypertrophy of prostate without urinary obstruction and 04/200501/11/2011 other lower urinary tract symptoms (LUTS) Urinary tract infection, site not specified 11/20/2005 01/11/2011 Unspecified essential hypertension 11/20/200501/11 Problem Noted Date Resolved Date Special screening for malignant neoplasms, colon 10/07/2014 10/07/2014 Sideroblastic anemia, acquired 04/11/2012 5 Macrocytic anemia 01/09/2012 04/11/2012 Mixed hyperlipidemia 12/06/2009 01/11/2011 Borderline diabetes mellitus 01/19/2009 01/11/2011 Hypertrophy of prostate without urinary obstruction and 04/200501/11/2011 other lower urinary tract symptoms (LUTS) Urinary tract infection, site not specified 11/20/2005 01/11/2011 Unspecified essential hypertension 11/20/200501/11 History of Present Illness OctavianoMessi lucia Brandy - 01/12/2020 9:47 AM EDT Medicare Yearly Visit Medical B eligibilty date 08/20/2017 Date of last exam 01/07/2019 PAST MEDICAL HISTORY Diagnosis Date ? Kidney stones ? MDS (myelodysplastic syndrome), low grade (HCC) Previously seeing Dr. Alfonso ? Sideroblastic anemia (HCC) PAST SURGICAL HISTORY Procedure Laterality Date ? APPENDECTOMY ? [facility] Colonoscopy ? VASECTOMY Patient has no known allergies. Medications reviewed: Yes FAMILY HISTORY Problem Relation Age of Onset ? Cancer Father melonma behind eye ? Skin Cancer Father melanoma ? Alzheimer's Disease Father ? Diabetes Brother Type I ? Stroke Paternal Grandfather 59 SOCIAL HISTORY: Social History Tobacco Use ? Smoking status: Former Smoker Packs/day: 2.00 Years: 10.00 Pack years: 20.00 Types: Cigarettes Quit date: 11/17/1984 Years since quittin.1 ? Smokeless tobacco: Never Used Substance Use Topics ? Alcohol use: No ? Drug use: No Clemencia works out regularly 7 times per week with walking. He watches his diet for sodium, low fat and low cholesterol most of the time. List of current specialists seen: Dr. Yasir Liu End of Live Planning discussed including patients advanced directive wishes: Yes I am willing to follow Clemencia's advanced directives. PHQ-2 / Depression screen He in the past two weeks denies having felt down, depressed, hopeless or with little interest or pleasure in doing things. Functional Ability/Safety Screen 1. Was the patient's timed Up and Go test unsteady or longer than 30 seconds? No 2. Does the patient need help with the phone, transportation, shopping,preparing meals, housework, laundry, medications or managing money? No 3. Does your home have rugs in the hallway, lack of grab bars in the bathroom, lack of handrails on the stairs or have poor lighting? No Hearing Evaluation: normal PHYSICAL EXAM BP 126/56 Pulse 84 Resp 12 Wt 81.6 kg (180 lb) BMI 23.96 kg/m? Alert and oriented X 3: YES Body mass index is 23.96 kg/m?. Visual acuity: OD: 20/50 OS: 20/ 70 OU: 20/40 See below ASSESSMENT/PLAN: 69 year old male The following prevention plan was discussed during the office visit and provided to the patient: - Glaucoma screening - Colorectal Cancer screening Colonoscopy--was postponed this year due to COVID-19 - US screening of Aorta for AAA--discussed Messi Fernández MD This note was created using [employer]. Subjective Clemencia Garcia is a 69 year old male. HISTORY Clemencia Garcia is a 69 year old gentleman here for Medicare Wellness and yearly exam and follow up appointment. Eczema much improved Cool showers Gold reyes eczema relief cream has been doing well prevention. Cerave itch relief helps too for spot treatment. Hydroxyzine helped--trying without for now. PAST MEDICAL HISTORY Diagnosis Date ? Kidney stones ? MDS (myelodysplastic syndrome), low grade (HCC) Previously seeing Dr. Alfonso ? Sideroblastic anemia (HCC) Current Outpatient Medications Medication Sig ? hydrOXYzine HCl (ATARAX) 25 mg tablet TAKE 1 TABLET BY MOUTH EVERYDAY AT BEDTIME ? loratadine (CLARITIN) 10 mg tablet Take 10 mg by mouth twice daily. ? fluocinonide (LIDEX) 0.05 % cream Apply 1 application to affected area once daily as needed (hand eczema). No current facility-administered medications for this visit. ALLERGIES No Known Allergies FAMILY HISTORY Problem Relation Age of Onset ? Cancer Father melonma behind eye ? Skin Cancer Father melanoma ? Alzheimer's Disease Father ? Diabetes Brother Type I ? Stroke Paternal Grandfather 59 Social History Tobacco Use ? Smoking status: Former Smoker Packs/day: 2.00 Years: 10.00 Pack years: 20.00 Types: Cigarettes Quit date: 11/17/1984 Years since quittin.1 ? Smokeless tobacco: Never Used Substance Use Topics ? Alcohol use: No ? Drug use: No Review of Systems Objective BP 126/56 Pulse 84 Resp 12 Wt 81.6 kg (180 lb) BMI 23.96 kg/m? Physical Exam Vitals signs reviewed. Constitutional: Appearance: Normal appearance. HENT: Head: Normocephalic. Right Ear: Tympanic membrane, ear canal and external ear normal. Left Ear: Tympanic membrane, ear canal and external ear normal. Mouth/Throat: Mouth: Mucous membranes are moist. Pharynx: Oropharynx is clear. Eyes: Extraocular Movements: Extraocular movements intact. Conjunctiva/sclera: Conjunctivae normal. Neck: Musculoskeletal: Normal range of motion. Cardiovascular: Rate and Rhythm: Normal rate and regular rhythm. Pulses: Normal pulses. Heart sounds: Normal heart sounds. Pulmonary: Effort: Pulmonary effort is normal. Breath sounds: Normal breath sounds. Abdominal: General: Abdomen is flat. There is no distension. Palpations: Abdomen is soft. There is no mass. Skin: General: Skin is warm and dry. Neurological: General: No focal deficit present. Mental Status: He is alert and oriented to person, place, and time. Psychiatric: Attention and Perception: Attention normal. Mood and Affect: Mood normal. Speech: Speech normal. Behavior: Behavior normal. Thought Content: Thought content normal. Cognition and Memory: Cognition normal. Judgment: Judgment normal. Component Latest Ref Rng & Units 09/21/2019 09/29/2019 10/01/2019 11/04/2019 12/22/2019 WBC 3.70 - 11.00 k/uL 4.72 4.38 4.32 4.78 RBC 4.20 - 6.00 m/uL 1.86 (L) 1.82 (L) 1.95 (L) 1.84 (L) Hemoglobin 13.0 - 17.0 g/dL 7.2 (L) 7.1 (L) 7.5 (L) 7.3 (L) Hematocrit 39.0 - 51.0 % 21.9 (L) 21.4 (L) 22.5 (L) 21.8 (L) MCV 80.0 - 100.0 fL 117.7 (H) 117.6 (H) 115.4 (H) 118.5 (H) MCH 26.0 - 34.0 pG 38.7 (H) 39.0 (H) 38.5 (H) 39.7 (H) MCHC 30.5 - 36.0 g/dL 32.9 33.2 33.3 33.5 RDW-CV 11.5 - 15.0 % 19.7 (H) 20.0 (H) 19.3 (H) 16.7 (H) Platelet Count 150 - 400 k/uL 428 (H) 368 395 345 MPV 9.0 - 12.7 fL 11.2 11.6 10.9 10.9 Neut% % 69.5 62.1 68.8 66.2 Abs Neut (ANC) 1.45 - 7.50 k/uL 3.26 2.72 2.95 3.16 Lymph% % 14.6 20.1 17.8 19.5 Abs Lymph 1.00 - 4.00 k/uL 0.69 (L) 0.88 (L) 0.77 (L) 0.93 (L) Piatt% % 8.9 9.8 8.3 8.8 Abs Piatt <0.87 k/uL 0.42 0.43 0.36 0.42 Eosin% % 5.7 6.2 4.2 3.8 Abs Eosin <0.46 k/uL 0.27 0.27 0.18 0.18 Baso% % 1.3 1.8 0.9 1.7 Abs Baso <0.11 k/uL 0.06 0.08 0.04 0.08 Review (for CBC/CBCDIF) Done Nucleated Reds 0 /100 WBC 0.6 (H) 0.9 (H) 0.9 (H) 0.8 (H) Absolute nRBC <0.01 k/uL 0.03 (H) 0.04 (H) 0.04 (H) 0.04 (H) Diff Type Auto Diff Auto Diff Auto Diff Auto Diff Protein, Total 6.3 - 8.0 g/dL 6.5 6.6 6.5 Albumin 3.9 - 4.9 g/dL 4.4 4.4 4.4 Calcium 8.5 - 10.2 mg/dL 9.1 9.2 9.4 Bilirubin, Total 0.2 - 1.3 mg/dL 2.3 (H) 1.5 (H) 1.7 (H) Alkaline Phosphatase 38 - 113 U/L 66 67 66 AST 14 - 40 U/L 21 15 14 Glucose 74 - 99 mg/dL 110 (H) 126 (H) 131 (H) BUN 9 - 24 mg/dL 17 10 19 Creatinine 0.73 - 1.22 mg/dL 0.85 0.90 0.92 Sodium 136 - 144 mmol/L 137 141 138 Potassium 3.7 - 5.1 mmol/L 4.2 4.8 4.1 Chloride 97 - 105 mmol/L 104 105 103 CO2 22 - 30 mmol/L 24 26 27 Anion Gap 9 - 18 mmol/L 9 10 8 (L) ALT 10 - 54 U/L 15 15 11 eGFR- >60 >60 >60 eGFR-All Other Races . >60 >60 >60 ABO/RH(D) A POSITIVE Antibody Screen NEG Type+Scr Expiration 10/04/2019 Order Type Blood Bank Blood Bank Historical Ab Scr Status NEGATIVE Iron 41 - 186 ug/dL 179 TIBC 232 - 386 ug/dL 207 (L) Transferrin Saturation 15 - 57 % 86 (H) Retic % 0.4 - 2.0 % 2.4 (H) Abs Retic 0.0180 - 0.1000 M/uL 0.044 LD 135 - 225 U/L 168 Ferritin 30.3 - 565.7 ng/mL 833.0 (H) Computer Meteorologist Specimen #: [id number] . . . Erythropoietin 2.6 - 18.5 mIU/mL 289.8 (H) Assessment and Plan Encounter Diagnosis ICD-10-CM 1. Medicare annual wellness visit, subsequent Z00.00 2. Need for vaccination Z23 ADMIN OF INFLUENZA VACCINE INFLUENZA SEASONAL QUADRIVALENT HIGH DOSE AGE 65+ Patient here for yearly exam and follow up. Above issues addressed with patient. Patient involved in shared decision making for management of medical issues. History and medications reviewed. Epic updated as needed Refills taken care of and meds adjusted as indicated after reviewed history, exam and labs. Health Maintenance reviewed. Updated record and/or ordered tests as recorded. Encouraged on efforts at healthy diet and regular exercise and adequate sleep. The majority of the visit was spent counseling and/or coordinating care for the patient. [id number] time was at least 25 minutes. Messi Fernández MD documented in this encounter Assessments Diagnosis Medicare annual wellness visit, subseque nt - Primary Routine general medical examination at a health care facility Chronic eczema Contact dermatitis and other eczema, due to unspecified cause Need for vaccination Need for prophylactic vaccination and in oculation against unspecified single disease Summary Purpose Family History No Family History Records Found Advance Directives No Advanced Directives Records Found Additional Source Comments FOR RECORDS PERTAINING TO PATIENTS WHO ARE OR HAVE BEEN ENROLLED IN A CHEMICAL DEPENDENCY/SUBSTANCE ABUSE PROGRAM, SOME INFORMATION MAY BE OMITTED. This clinical summary was aggregated from multiple sources. Caution should be exercised in using it in the provision of clinical care. This summary normalizes information from multiple sources, and as a consequence, information in this document may materially changethe coding, format and clinical context of patient data. In addition, data may be omittedin some cases. CLINICAL DECISIONS SHOULD BE BASED ON THE PRIMARY CLINICAL RECORDS. [facility] provides no warranty or guarantee of the accuracy or completeness of information in this document. UNRECOGNIZED CONTENT PROVIDED BELOW FOR UNRECOGNIZED SECTION Source Comments In the event this information is protected by the Federal Confidentiality of Alcohol and Drug Abuse Patient Records regulations: The Federal rules restrict any use of the information to criminally investigate or prosecute any alcohol or drug abuse patient.[facility] the event this information is protected by the Federal Confidentiality of Alcohol and Drug Abuse Patient Records regulations: The Federal rules restrict any use of the information to criminally investigate or prosecute any alcohol or drug abuse patient.[facility] UNRECOGNIZED CONTENT PROVIDED BELOW FOR UNRECOGNIZED SECTION Reason for Visit Reason Comments Results blood transfusion Reason Comments Medicare Wellness Exam UNRECOGNIZED CONTENT PROVIDED BELOW FOR UNRECOGNIZED SECTION Miscellaneous Notes Telephone Encounter - Pippa English Lpn, LPN - 01/26/2020 4:06 PM EDT Pt. Scheduled for transfusion 1 unit packed cells. Pt. And lab notified, orders faxed. Pt.instructed to leave his green band on. Pippa English LPN elephone Encounter - Ely Alfonso - 01/26/2020 3:40 PM EDTPlease call patient for possible blood transfusion this week. Message left for patient to call back today. Ely Alfonso MD documented in this encounter UNRECOGNIZED CONTENT PROVIDED BELOW FOR UNRECOGNIZED SECTION Nursing Notes Eugenia Browne LPN - 01/12/2020 9:19 AM EDTVISUAL ACUITY: Today's exam: Vision Correction? No vision correction: RIGHT EYE: 20/50 LEFT EYE: 20/ 70 BOTH EYES: 20/40 documented in this encounter UNRECOGNIZED CONTENT PROVIDED BELOW FOR UNRECOGNIZED SECTION No Status Records Found UNRECOGNIZED CONTENT PROVIDED BELOW FOR UNRECOGNIZED SECTION INFORMATION SOURCE DATE CREATED AUTHOR AUTHOR'S ORGANIZATIO N 02/05/2020 [facility] dori
== END | disposition home or self-care (01) ==
LOC: CVS 14:04
PROVIDERS: PCP Family Medicine; Referring Provider Nurse Practitioner; Visit Provider Nurse Practitioner
DX: M79.604 Pain in right leg (principal); M79.605 Pain in left leg; R60.0 Localized edema
CPT/HCPCS: 93970

== ENCOUNTER → 2020-01-27 09:58 | Outpatient (CLI) | payer MEDICARE, OTHER, SELFPAY ==
[2020-01-27 10:13] VITALS: BP 150/78; PULSE 82; RESP 16; TEMP 36.2; O2SAT 100; BMI 22.1
[2020-01-27] MEDS: Acetaminophen 325 MG Tablet 650 MG PO (10:21)
[2020-01-27 11:10] VITALS: BP 150/78; PULSE 82; RESP 18; TEMP 36.2; O2SAT 100
[2020-01-27 11:25] VITALS: BP 127/58; PULSE 67; RESP 16; TEMP 36.2; O2SAT 100
[2020-01-27 12:23] VITALS: BP 125/63; PULSE 65; RESP 18; TEMP 36.4; O2SAT 100
[2020-01-27 13:21] VITALS: BP 133/69; PULSE 60; RESP 16; TEMP 36.2; O2SAT 100
== END ==
PROVIDERS: PCP Family Medicine; Referring Provider Internal Medicine Hematology & Oncology; Visit Provider Internal Medicine Hematology & Oncology
DX: Z51.89 Encounter for other specified aftercare (principal); D46.20 Refractory anemia with excess of blasts, unspecified
CPT/HCPCS: 36430; 86850; 86900; 86901; 86920; 86922; P9040

== ENCOUNTER → 2020-10-11 11:08 | Outpatient (CLI) | payer MEDICARE, OTHER, SELFPAY ==
[2020-01-27 10:13] VITALS: BMI 22.1
[2020-10-11 11:27] VITALS: BP 119/64; PULSE 67; RESP 16; TEMP 36.7; O2SAT 100; BMI 22.4
[2020-10-11] MEDS: 0.9% NaCl Peripheral Flush Adult/Peds IV (11:31)
[2020-10-11] MEDS: Acetaminophen 325 MG Tablet 650 MG PO (11:37)
[2020-10-11 12:11] VITALS: BP 124/60; PULSE 62; RESP 16; TEMP 36.6; O2SAT 100
[2020-10-11 13:17] VITALS: BP 134/63; PULSE 71; RESP 16; TEMP 36.6; O2SAT 100
[2020-10-11 14:15] VITALS: BP 129/59; PULSE 72; RESP 16; TEMP 36.8; O2SAT 100
== END ==
PROVIDERS: PCP Family Medicine; Referring Provider Internal Medicine Hematology & Oncology; Visit Provider Internal Medicine Hematology & Oncology
DX: Z51.89 Encounter for other specified aftercare (principal); D46.20 Refractory anemia with excess of blasts, unspecified
CPT/HCPCS: 36430; 86644; 86850; 86900; 86901; 86920; 86922; J7040; J7050; P9040; A4216

== ENCOUNTER → 2021-01-02 09:01 | Outpatient (CLI) | payer MEDICARE, OTHER, SELFPAY ==
[2021-01-02 09:07] VITALS: BP 140/65; PULSE 84; RESP 16; TEMP 36.4; O2SAT 100
[2021-01-02] MEDS: Acetaminophen 325 MG Tablet 650 MG PO (09:33)
[2021-01-02] MEDS: 0.9% NaCl Peripheral Flush Adult/Peds IV (09:34)
[2021-01-02 09:47] VITALS: BP 136/62; PULSE 75; RESP 16; TEMP 36.8; O2SAT 100
[2021-01-02 10:47] VITALS: BP 137/72; PULSE 70; RESP 16; TEMP 36.7; O2SAT 99
[2021-01-02 11:48] VITALS: BP 147/66; PULSE 67; RESP 16; TEMP 36.5
== END ==
PROVIDERS: PCP Family Medicine; Referring Provider Internal Medicine Hematology & Oncology; Visit Provider Internal Medicine Hematology & Oncology
DX: Z51.89 Encounter for other specified aftercare (principal); D46.20 Refractory anemia with excess of blasts, unspecified
CPT/HCPCS: 36430; 86850; 86900; 86901; 86920; 86922; J7040; P9040; A4216